=== PATIENT | female | born 2000 | race Caucasian/White ===

== ENCOUNTER → 2019-11-14 | Outpatient (CLI) | payer OTHER, SELFPAY ==
[2019-11-14 13:12] VITALS: BMI 20.1
[2019-11-16 08:40] LABS: Thyroid Peroxidase AB 12 IU/mL (0-34)
== END | disposition home or self-care (01) ==
PROVIDERS: PCP Pediatrics; Referring Provider Internal Medicine Endocrinology, Diabetes & Metabolism; Visit Provider Internal Medicine Endocrinology, Diabetes & Metabolism
DX: E04.9 Nontoxic goiter, unspecified (principal)
CPT/HCPCS: 86376

== ENCOUNTER → 2020-12-27 08:25 | Outpatient (CLI) | payer OTHER, SELFPAY ==
[2020-12-27 08:12] VITALS: BMI 19.8
[2020-12-27 13:00] LABS: Free T3 2.8 pg/mL (2.18-3.98); T4 Free Direct 1.02 ng/dL (0.76-1.46); Thyroid Stim Hormone (TSH) 2.96 uIU/mL (0.358-3.74)
== END ==
PROVIDERS: PCP Pediatrics; Visit Provider Internal Medicine Endocrinology, Diabetes & Metabolism
DX: E05.00 Thyrotoxicosis with diffuse goiter without thyrotoxic crisis or storm (principal)
CPT/HCPCS: 36415; 84439; 84443; 84481

== ENCOUNTER → 2022-02-14 | Outpatient (CLI) | payer OTHER, SELFPAY ==
[2022-02-14 15:11] LABS: Absolute Lymphocyte Count 2.14 X10^3/uL (0.83-4.51); Absolute Neutrophil Count 3.3 X10^3/uL (2.0-7.7); Basophil# 0.05 X10^3/uL; Basophil% 0.8 % (0-1); Eosinophil# 0.21 X10^3/uL; Eosinophils% 3.3 % (0-5); Hematocrit 40.3 % (37-47); Hemoglobin 12.6 g/dL (12.0-15.0); Lymphocyte # 2.14 X10^3/ul (0.83-4.51); Lymphocyte % 34.1 % (19-41); Mean Corp Hgb Conc 31.3 g/dL (32-36); Mean Corpuscular Hgb 26.6 pg (27.0-32.0); Mean Corpuscular Volume 85.2 fL (81-99); Mean Platelet Vol. 10.5 fl (6.2-12.0); Monocyte# 0.56 X10^3/uL; Monocyte% 8.9 % (0-10); NRBC Flagged by Analyzer 0 % (0-5); Neutrophil # 3.29 X10^3/uL (2.7-7.7); Neutrophil % 52.6 % (47-70); Platelet Count 323 K/mm3 (150-450); RBC Distribution Width CV 14.7 % (11.6-14.6); RBC Distribution Width SD 45.7 fl (35.1-43.9); Red Blood Count 4.73 M/mm3 (4.2-5.4); White Blood Count 6.3 K/mm3 (4.4-11.0)
[2022-02-14 18:33] LABS: ALB/GLOB Ratio 1.1 RATIO (0.9-2.4); AST(SGOT) 19 U/L (15-37); Alanine Aminotransfer ALT/SGPT 20 U/L (13-56); Albumin, Serum 4.1 g/dL (3.2-5.0); Alkaline Phosphatase 58 U/L (45-117); Anion Gap 7 (5-15); BUN 14 mg/dL (7-18); BUN/Creat Ratio 15.6 RATIO (10-20); Calcium,Total 9.3 mg/dL (8.5-10.1); Chloride 106 mmol/L (98-107); EST Glomerular Filtration Rate 83 mL/min (>60); Est Glom Filt Rate - Afr Amer 101 mL/min (>60); Free T3 2.8 pg/mL (2.18-3.98); Globulin 3.6 g/dL (2.2-4.2); Glucose 122 mg/dL (74-106); Potassium 4.1 mmol/L (3.5-5.1); Protein, Total 7.7 g/dL (6.4-8.2); Sodium Level 140 mmol/L (136-145); T4 Free Direct 0.95 ng/dL (0.76-1.46); Thyroid Stim Hormone (TSH) 1.44 uIU/mL (0.358-3.74)
== END | disposition home or self-care (01) ==
LOC: BIMLAB 14:08
PROVIDERS: Referring Provider Nurse Practitioner Family; Visit Provider Nurse Practitioner Family
DX: E05.00 Thyrotoxicosis with diffuse goiter without thyrotoxic crisis or storm (principal)
CPT/HCPCS: 36415; 80053; 84439; 84443; 84481; 85025

== ENCOUNTER → 2022-06-20 | Outpatient (CLI) | payer OTHER, SELFPAY ==
[2022-06-20 13:05] LABS: Free T3 2.5 pg/mL (2.18-3.98); T4 Free Direct 0.89 ng/dL (0.76-1.46); Thyroid Stim Hormone (TSH) 2.43 uIU/mL (0.358-3.74)
== END | disposition home or self-care (01) ==
LOC: BIMLAB 10:12
PROVIDERS: Visit Provider Internal Medicine Endocrinology, Diabetes & Metabolism
DX: E05.00 Thyrotoxicosis with diffuse goiter without thyrotoxic crisis or storm (principal)
CPT/HCPCS: 36415; 84439; 84443; 84481

== ENCOUNTER → 2022-12-12 | Outpatient (CLI) | payer OTHER, SELFPAY ==
[2022-12-12 13:21] LABS: Free T3 2.2 pg/mL (2.18-3.98); T4 Free Direct 0.76 ng/dL (0.76-1.46); Thyroid Stim Hormone (TSH) 4.28 uIU/mL (0.358-3.74)
== END | disposition home or self-care (01) ==
LOC: BIMLAB 09:20
PROVIDERS: Referring Provider Internal Medicine Endocrinology, Diabetes & Metabolism; Visit Provider Internal Medicine Endocrinology, Diabetes & Metabolism
DX: E05.00 Thyrotoxicosis with diffuse goiter without thyrotoxic crisis or storm (principal)
CPT/HCPCS: 36415; 84439; 84443; 84481

== ENCOUNTER → 2023-06-09 | Outpatient (CLI) | payer OTHER, SELFPAY ==
[2023-06-09 13:44] LABS: Free T3 1.7 pg/mL (2.18-3.98); T4 Free Direct 0.34 ng/dL (0.76-1.46)
== END | disposition home or self-care (01) ==
LOC: BIMLAB 09:19
PROVIDERS: Referring Provider Internal Medicine Endocrinology, Diabetes & Metabolism; Visit Provider Internal Medicine Endocrinology, Diabetes & Metabolism
DX: E05.00 Thyrotoxicosis with diffuse goiter without thyrotoxic crisis or storm (principal)
CPT/HCPCS: 36415; 84439; 84443; 84481

== ENCOUNTER → 2023-07-10 | Outpatient (CLI) | payer OTHER, SELFPAY ==
[2023-07-10 13:19] LABS: T4 Free Direct 0.43 ng/dL (0.76-1.46)
== END | disposition home or self-care (01) ==
LOC: BIMLAB 09:01
PROVIDERS: Referring Provider Internal Medicine Endocrinology, Diabetes & Metabolism; Visit Provider Internal Medicine Endocrinology, Diabetes & Metabolism
DX: E05.00 Thyrotoxicosis with diffuse goiter without thyrotoxic crisis or storm (principal)
CPT/HCPCS: 36415; 84439; 84443

== ENCOUNTER → 2023-08-28 | Outpatient (CLI) | payer OTHER, SELFPAY ==
--- OUTSIDE RECORDS SUMMARY | 2023-08-28 09:26 | XMS RPT_ITS | CCD ---
Author Name Unknown Address [address] [facility] [address] [place] [address] Organization [facility] Care Team Providers Care Dye Range Operator Name Role Phone Roslyn Morse Attending Unava ilStefany Adan Referring Unavailabl e Strong, Luly Mary Primary Care Unavailable Briskin, Roslyn Archer Attending Unava ilable Strong, Luly Usman Primary Care Unavailable Stantoniskin, Roslyn Archer Attending Unava ilable Strong, Luly Mary Primary Care Unavailable StephanieWyatt Attending Unavail able StephanieWyatt Referring Unavail able StrongLuly Primary Care Unavailable Stephanie, Wyatt Gallegos Attending Unavail able StephanieWyatt Referring Unavail able Strong, Luly Mary Primary Care Unavailable StephanieWyatt schilling Admitting Unavail able StephanieWyatt schilling Attending Unavail able Luly Lambert Referring Unavailable StrongLuly Equality Primary Care Unavailable Stephanie, Wyatt Gallegos Attending Unavail able StephanieWyatt Referring Unavail able Strong, Luly Usman Primary Care Unavailable Luly Lambert MD Primary Care Provider [phone] Luly Lambert MD Primary Care Provider [phone] Ena Balderas APRN.CNP Primary Care Provider Katiuska Tavares DO Unavailable [phone] Yusra Perdue Unavailable ENA BALDERAS Referring Unavailable ENA BALDERAS Primary Care Unavailable ENA BALDERAS Attending Unavailable ENA BALDERAS Primary Care Unavailable LULY LAMBERT Primary Care Unavailable ENA BALDERAS Attending Unavailable ENA BALDERAS Primary Care Unavailable ENA BALDERAS Referring Unavailable ENA BALDERAS Primary Care Unavailable ENA BALDERAS Primary Care Unavailable ENA BALDERAS Attending Unavailable ENA BALDERAS Primary Care Unavailable Allergies Allergy Classification Reported Allergen(s) Allergy Type Date of Onset Reaction(s) Facility (18 sources) coconut allergenic extract; Translations: [COCONUT] Drug Allergy 02-27-20 09 Rash [facility] (18 sources) peanut; Translations: [PEANUTS] Propensity to adverse reactions 04-18-20 05 [facility] (16 sources) CATS ,DOGS [Other] Propensity to adverse reactions 04-18-20 05 [facility] Work Phone: (16 sources) Environmental allergies [Other] Propensity to adverse reactions 04-13-20 06 [facility] (16 sources) Tree nuts [Other] Propensity to adverse reactions 07-30-20 10 Other: See Comments [facility] Work Phone: (15 sources) Ether; Translations: [ETHER] Drug Intolerance 09-12-19 23 Intolerance [facility] Work Phone: (1 source) OTHER; Translations: [OTHER] Propensity to adverse reactions (disorder) 07-30-20 10 [facility] Medications Current Medications Medication Drug Class(es) Dates Sig (Normalized) Sig (Original) Albuterol 90 mcg/inh inhalation aerosol (3 sources) beta2-Adrenergic Agonist Albuterol 90 mcg/inh inhalation aerosol ALPRAZolam 0.25 mg oral tablet (1 source) Benzodiazepine Start: 07-17-2023 End: 08-16-2023 take 1 tablet by mouth twice daily as needed ALPRAZolam (XANAX) 0.25 mg tablet Indications: Situational anxiety , Chest tightness , Stress Take 1 tablet by mouth two times a day as needed for up to 30 days. 30 tablet 1 07/17/2023 08/16/2023 Active Completed/Discontinued Medications Medication Drug Class(es) Dates Sig (Normalized) Sig (Original) acetaminophen 325 mg oral tablet (17 sources) take 2 tablets by mouth every six hours as needed acetaminophen (TYLENOL) 325 mg tablet Take 650 mg by mouth every 6 hours as needed. 0 Active Problems Active Problems Problem Classification Problem Date Documented Da te Episodic/Chronic Abdominal pain (1 source) Periumbilical pain; Translations: [Periumbilical pain] Episodic Adjustment disorders (1 source) Stress; Translations: [Reaction to severe stress, unspecified] 07-17-2023 Chronic Allergic reactions (17 sources) Atopic dermatitis; Translations: [Other atopic dermatitis] Onset: 04-18-2005 04-18-2005 Chronic Anxiety disorders (4 sources) Generalized anxiety disorder; Translations: [Generalized anxiety disorder] Onset: 09-12-2022 Chronic Asthma (20 sources) Intermittent asthma; Translations: [Mild intermittent asthma, uncomplicated] Onset: 05-19-2005 01-16-2012 Chronic External cause codes: Natural/environment (1 source) Overexertion from prolonged static or awkward postures, initial encounter; Translations: [Overexertion from prolonged static or awkward postures, init] Onset: 03-31-2018 External cause codes: Place of occurrence (1 source) College as the place of occurrence of the external cause; Translations: [College as the place of occurrence of the external cause] Onset: 03-31-2018 Immunizations and screening for infectious disease (7 sources) Patient encounter status; Translations: [Encounter for screening for infections with a predominantly sexual mode of transmission] Onset: 05-08-2023 Episodic Nonspecific chest pain (1 source) Tight chest; Translations: [Other chest pain] 07-17-2023 Episodic Other gastrointestinal disorders (2 sources) Chronic constipation; Translations: [Other constipation] Episodic Other upper respiratory disease (17 sources) Allergic rhinitis; Translations: [Allergic rhinitis, unspecified] Onset: 04-18-2005 04-18-2005 Chronic Other upper respiratory infections (1 source) Sore throat symptom; Translations: [Acute pharyngitis, unspecified] Episodic Otitis media and related conditions (2 sources) Acute right otitis media; Translations: [Otitis media, unspecified, right ear] Episodic Thyroid disorders (19 sources) Hyperthyroidism; Translations: [Thyrotoxicosis, unspecified without thyrotoxic crisis or storm] Onset: 09-12-2022 Chronic Unclassified (2 sources) Oth tear of medial meniscus, current injury, unsp knee, init; Translations: [Oth tear of medial meniscus, current injury, unsp knee, init] Onset: 04-12-2018 Viral infection (7 sources) Viral disease; Translations: [Viral infection, unspecified] Onset: 04-07-2023 Episodic Past or Other Problems Problem Classification Problem Date Documented Da te Episodic/Chronic Allergic reactions (17 sources) Allergy to tree nut; Translations: [Allergy to other foods] Onset: 04-18-2005 10-10-2015 Episodic Joint disorders and dislocations; trauma-related (2 sources) Complex tear of medial meniscus, current injury, right knee, initial encounter; Translations: [Complex tear of medial mensc, current injury, r knee, init] Onset: 03-31-2018 Episodic Other aftercare (1 source) intermediate card tender (current) use of non-steroidal anti-inflammatorie s (NSAID); Translations: [intermediate card tender (current) use of non-steroidal non-inflam (NSAID)] Onset: 03-31-2018 Episodic Other gastrointestinal disorders (1 source) Other constipation; Translations: [Chronic constipation] Onset: 09-12-2022 Episodic Other lower respiratory disease (17 sources) Disorder of lung; Translations: [Other disorders of lung] Onset: 04-18-2005 04-18-2005 Episodic Other non-traumatic joint disorders (3 sources) Pain in right knee; Translations: [Pain in right knee] Onset: 03-19-2018 Episodic Other non-traumatic joint disorders (3 sources) Pain in unspecified knee; Translations: [Pain in unspecified knee] Onset: 03-19-2018 Episodic Other non-traumatic joint disorders (3 sources) Effusion, right knee; Translations: [Effusion, right knee] Onset: 03-19-2018 Episodic Other screening for suspected conditions (not mental disorders or infectious disease) (2 sources) Encounter for screening for nutritional disorder; Translations: [Encounter for screening for lipoid disorders] Onset: 09-12-2022 Episodic Results Test Name Value Interpretation Reference Range Facil ity Vital Signs Date Time Vital Sign Value Performing Clinician Facility 07-17-2023 12:21-0500 Body weight 60.87 kg Ena Balderas APRN.CNP Work Phone: [facility] 07-17-2023 12:21-0500 Diastolic blood pressure 64 mm[Hg] Ena Balderas APRN.CNP Work Phone: [facility] 07-17-2023 12:21-0500 Heart rate 68 /min Ena Andrey CLOTH FINISHING RANGE TENDER.SPECIMEN PREPARATION ASSISTANT Work Phone: [facility] 07-17-2023 12:21-0500 Respiratory rate 16 /min Ena Andrey CLOTH FINISHING RANGE TENDER.SPECIMEN PREPARATION ASSISTANT Work Phone: [facility] 07-17-2023 12:21-0500 SaO2% (BldA) [Mass fraction] 100 % Ena Andrey CLOTH FINISHING RANGE TENDER.SPECIMEN PREPARATION ASSISTANT Work Phone: [facility] 07-17-2023 12:21-0500 Systolic blood pressure 100 mm[Hg] Ena Andrey CLOTH FINISHING RANGE TENDER.SPECIMEN PREPARATION ASSISTANT Work Phone: [facility] 04-07-2023 11:40-0400 Body temperature 97.52 [degF] Katiuska Anusha DO [facility] 04-07-2023 11:40-0400 Body weight 59 kg Katiuska Anusha DO [facility] 04-07-2023 11:40-0400 Diastolic blood pressure 79 mm[Hg] Katiuska Anusha DO [facility] 04-07-2023 11:40-0400 Heart rate 75 /min Katiuska Anusha DO [facility] 04-07-2023 11:40-0400 Respiratory rate 16 /min Katiuska Anusha DO [facility] 04-07-2023 11:40-0400 SaO2% (BldA) [Mass fraction] 99 % Katiuska Anusha DO [facility] 04-07-2023 11:40-0400 Systolic blood pressure 114 mm[Hg] Katiuska Tavares DO [facility] 01-26-2023 16:36-0400 Body temperature 97.7 [degF] Krislyn Aberegg PA Work Phone: [facility] 01-26-2023 16:36-0400 Body weight 60.33 kg Krislyn Aberegg PA Work Phone: [facility] 01-26-2023 16:36-0400 Diastolic blood pressure 62 mm[Hg] Krislyn Aberegg PA Work Phone: [facility] 01-26-2023 16:36-0400 Heart rate 58 /min Krislyn Aberegg PA Work Phone: [facility] 01-26-2023 16:36-0400 Respiratory rate 16 /min Krislyn Aberegg PA Work Phone: [facility] 01-26-2023 16:36-0400 SaO2% (BldA) [Mass fraction] 96 % Krislyn Aberegg PA Work Phone: [facility] 01-26-2023 16:36-0400 Systolic blood pressure 100 mm[Hg] Krislyn Aberegg PA Work Phone: [facility] 10-23-2022 09:21-0400 Body weight 59.42 kg Ena Andrey CLOTH FINISHING RANGE TENDER.SPECIMEN PREPARATION ASSISTANT Work Phone: [facility] 10-23-2022 09:21-0400 Diastolic blood pressure 70 mm[Hg] Ena Andrey CLOTH FINISHING RANGE TENDER.SPECIMEN PREPARATION ASSISTANT Work Phone: [facility] 10-23-2022 09:21-0400 Heart rate 62 /min Ena Andrey CLOTH FINISHING RANGE TENDER.SPECIMEN PREPARATION ASSISTANT Work Phone: [facility] 10-23-2022 09:21-0400 Respiratory rate 16 /min Ena Andrey CLOTH FINISHING RANGE TENDER.SPECIMEN PREPARATION ASSISTANT Work Phone: [facility] 10-23-2022 09:21-0400 SaO2% (BldA) [Mass fraction] 100 % Ena Andrey CLOTH FINISHING RANGE TENDER.SPECIMEN PREPARATION ASSISTANT Work Phone: [facility] 10-23-2022 09:21-0400 Systolic blood pressure 106 mm[Hg] Ena Andrey CLOTH FINISHING RANGE TENDER.SPECIMEN PREPARATION ASSISTANT Work Phone: [facility] 09-12-2022 08:09-0500 Body weight 60.15 kg Ena Andrey CLOTH FINISHING RANGE TENDER.SPECIMEN PREPARATION ASSISTANT Work Phone: [facility] 09-12-2022 08:09-0500 Diastolic blood pressure 80 mm[Hg] Ena Andrey CLOTH FINISHING RANGE TENDER.SPECIMEN PREPARATION ASSISTANT Work Phone: [facility] 09-12-2022 08:09-0500 Heart rate 85 /min Ena Andrey CLOTH FINISHING RANGE TENDER.SPECIMEN PREPARATION ASSISTANT Work Phone: [facility] 09-12-2022 08:09-0500 Respiratory rate 16 /min Ena Andrey CLOTH FINISHING RANGE TENDER.SPECIMEN PREPARATION ASSISTANT Work Phone: [facility] 09-12-2022 08:09-0500 SaO2% (BldA) [Mass fraction] 97 % Ena Andrey CLOTH FINISHING RANGE TENDER.SPECIMEN PREPARATION ASSISTANT Work Phone: [facility] 09-12-2022 08:09-0500 Systolic blood pressure 118 mm[Hg] Ena Andrey CLOTH FINISHING RANGE TENDER.SPECIMEN PREPARATION ASSISTANT Work Phone: [facility] 09-09-2022 07:30-0500 Body temperature 98.8 [degF] Ac Pendlebury CLOTH FINISHING RANGE TENDER.SPECIMEN PREPARATION ASSISTANT Work Phone: [facility] 09-09-2022 07:30-0500 Body weight 60.78 kg Ac Pendlebury CLOTH FINISHING RANGE TENDER.SPECIMEN PREPARATION ASSISTANT Work Phone: [facility] 09-09-2022 07:30-0500 Diastolic blood pressure 62 mm[Hg] Ac Pendlebury CLOTH FINISHING RANGE TENDER.SPECIMEN PREPARATION ASSISTANT Work Phone: [facility] 09-09-2022 07:30-0500 Heart rate 78 /min Ac Du CLOTH FINISHING RANGE TENDER.SPECIMEN PREPARATION ASSISTANT Work Phone: [facility] 09-09-2022 07:30-0500 Respiratory rate 16 /min Ac Du CLOTH FINISHING RANGE TENDER.SPECIMEN PREPARATION ASSISTANT Work Phone: [facility] 09-09-2022 07:30-0500 SaO2% (BldA) [Mass fraction] 99 % Ac Du CLOTH FINISHING RANGE TENDER.SPECIMEN PREPARATION ASSISTANT Work Phone: [facility] 09-09-2022 07:30-0500 Systolic blood pressure 120 mm[Hg] Ac Du CLOTH FINISHING RANGE TENDER.SPECIMEN PREPARATION ASSISTANT Work Phone: [facility] 05-20-2022 09:31-0400 Body height 175.3 cm Bernarda Vargas CLOTH FINISHING RANGE TENDER.CNM Work Phone: [facility] 05-20-2022 09:31-0400 Body weight 61.87 kg Bernarda Vargas CLOTH FINISHING RANGE TENDER.CNM Work Phone: [facility] 05-20-2022 09:31-0400 Diastolic blood pressure 64 mm[Hg] Bernarda Vargas CLOTH FINISHING RANGE TENDER.CNM Work Phone: [facility] 05-20-2022 09:31-0400 Systolic blood pressure 100 mm[Hg] Bernarda Vargas CLOTH FINISHING RANGE TENDER.CNM Work Phone: [facility] 05-05-2022 17:58-0400 Body temperature 97.81 [degF] Ac Du CLOTH FINISHING RANGE TENDER.SPECIMEN PREPARATION ASSISTANT Work Phone: [facility] 05-05-2022 17:58-0400 Body weight 62.05 kg Ac Du CLOTH FINISHING RANGE TENDER.SPECIMEN PREPARATION ASSISTANT Work Phone: [facility] 05-05-2022 17:58-0400 Diastolic blood pressure 60 mm[Hg] Ac Du CLOTH FINISHING RANGE TENDER.SPECIMEN PREPARATION ASSISTANT Work Phone: [facility] 05-05-2022 17:58-0400 Heart rate 61 /min Ac Du CLOTH FINISHING RANGE TENDER.SPECIMEN PREPARATION ASSISTANT Work Phone: [facility] 05-05-2022 17:58-0400 Respiratory rate 21 /min Ac Du CLOTH FINISHING RANGE TENDER.SPECIMEN PREPARATION ASSISTANT Work Phone: [facility] 05-05-2022 17:58-0400 SaO2% (BldA) [Mass fraction] 98 % Ac Du CLOTH FINISHING RANGE TENDER.SPECIMEN PREPARATION ASSISTANT Work Phone: [facility] 05-05-2022 17:58-0400 Systolic blood pressure 104 mm[Hg] Ac Du CLOTH FINISHING RANGE TENDER.SPECIMEN PREPARATION ASSISTANT Work Phone: [facility] Encounters Encounter Date Encounter Type Care Provider Facility Start: 07-17-2023 End: 07-17-2023 ambulatory [facility] Facility:[facility] Start: 07-17-2023 End: 07-17-2023 Patient encounter procedure Ena Sultanautzman CLOTH FINISHING RANGE TENDER.SPECIMEN PREPARATION ASSISTANT Work Phone: [facility] [place] Procedures Date Procedure Procedure Detail Performing Clinician Start: 07-17-2023 Ecg routine ecg w/le ast 12 lds i&r only [facility] Provider Start: 01-26-2023 STREP A MOLECULAR (POC) Alta SANTORO Work Phone: Start: 03-31-2018 Anes open/surg arthroscopic proc knee joint nos Roslyn Morse Start: 03-31-2018 Arthrs kne surg w/meniscectomy med/lat w/shvg Roslyn Morse Plan of Treatment Date Care Activity Detail Author Start: 07-25-2024 PAP TESTING PAP TESTING [facility] Start: 07-25-2024 Screening for malign ant neoplasm of cervix Pap Testing [facility] Start: 07-17-2024 Annual PCP Team Prison Guard Supervisor kristina Disease Visit Annual PCP Team Chronic Disease Visit [facility] Start: 10-24-2023 ANNUAL PCP TEAM MALT LOADER KRISTINA DISEASE VISIT ANNUAL PCP TEAM CHRONIC DISEASE VISIT [facility] Start: 09-12-2023 ANNUAL PCP TEAM MALT LOADER KRISTINA DISEASE VISIT ANNUAL PCP TEAM CHRONIC DISEASE VISIT [facility] Start: 09-12-2023 COVID-19 VACCINE (#1) COVID-19 VACCI NE (#1) [facility] Immunizations Immunization Date Immunization Notes Care Provider Samanta quiñones 02-22-2018 meningococcal B vacc ine, recombinant, OMV, adjuvanted [facility] CLOTH FINISHING RANGE TENDER.[facility] Work Phone: [facility] Work Phone: 01-19-2018 meningococcal B vacc ine, recombinant, OMV, adjuvanted [facility] CLOTH FINISHING RANGE TENDER.SPECIMEN PREPARATION ASSISTANT Work Phone: [facility] Work Phone: 01-16-2016 meningococcal polysaccharide (groups A, C, Y and W-135) diphtheria toxoid conjugate vaccine (MCV4P) [facility] CLOTH FINISHING RANGE TENDER.SPECIMEN PREPARATION ASSISTANT Work Phone: [facility] 01-16-2012 Meningococcal, MCV4, unspecified conjugate formulation(groups A, C, Y and W-135) [facility] CLOTH FINISHING RANGE TENDER.[facility] Work Phone: [facility] 01-16-2012 tetanus toxoid, redu gilma diphtheria toxoid, and acellular pertussis vaccine, adsorbed [facility] CLOTH FINISHING RANGE TENDER.SPECIMEN PREPARATION ASSISTANT Work Phone: [facility] 01-16-2012 varicella virus vaccine Yannick [facility] CLOTH FINISHING RANGE TENDER.[facility] Work Phone: [facility] 10-28-2004 diphtheria, tetanus toxoids and acellular pertussis vaccine [facility] CLOTH FINISHING RANGE TENDER.[facility] Work Phone: [facility] Work Phone: 10-28-2004 measles, mumps and rubella virus vaccine [facility] CLOTH FINISHING RANGE TENDER.SPECIMEN PREPARATION ASSISTANT Work Phone: [facility] Work Phone: 10-28-2004 poliovirus vaccine, inactivated [facility] CLOTH FINISHING RANGE TENDER.SPECIMEN PREPARATION ASSISTANT Work Phone: [facility] Work Phone: 07-24-2003 influenza virus vacc ine, unspecified formulation Ac [facility] CLOTH FINISHING RANGE TENDER.SPECIMEN PREPARATION ASSISTANT Work Phone: [facility] Work Phone: 03-17-2001 haemophilus influenz ae type b vaccine, HbOC conjugate [facility] CLOTH FINISHING RANGE TENDER.SPECIMEN PREPARATION ASSISTANT Work Phone: [facility] Work Phone: 03-17-2001 poliovirus vaccine, inactivated [facility] CLOTH FINISHING RANGE TENDER.[facility] Work Phone: [facility] Work Phone: 12-14-2000 diphtheria, tetanus toxoids and acellular pertussis vaccine [facility] CLOTH FINISHING RANGE TENDER.[facility] Work Phone: [facility] Work Phone: 12-14-2000 pneumococcal conjuga te vaccine, 7 valent [facility] CLOTH FINISHING RANGE TENDER.[facility] Work Phone: [facility] Work Phone: 12-14-2000 varicella virus vaccine [facility] CLOTH FINISHING RANGE TENDER.[facility] Work Phone: [facility] Work Phone: 09-18-2000 hepatitis B vaccine, pediatric or pediatric/adolescent dosage [facility] CLOTH FINISHING RANGE TENDER.[facility] Work Phone: [facility] Work Phone: 09-18-2000 measles, mumps and rubella virus vaccine [facility] CLOTH FINISHING RANGE TENDER.[facility] Work Phone: [facility] Work Phone: 09-18-2000 pneumococcal conjuga te vaccine, 7 valent [facility] CLOTH FINISHING RANGE TENDER.[facility] Work Phone: [facility] Work Phone: 06-16-2000 hepatitis B vaccine, pediatric or pediatric/adolescent dosage [facility] CLOTH FINISHING RANGE TENDER.SPECIMEN PREPARATION ASSISTANT Work Phone: [facility] Work Phone: 06-16-2000 pneumococcal conjuga te vaccine, 7 valent [facility] CLOTH FINISHING RANGE TENDER.[facility] Work Phone: [facility] Work Phone: 03-18-2000 diphtheria, tetanus toxoids and acellular pertussis vaccine [facility] CLOTH FINISHING RANGE TENDER.[facility] Work Phone: [facility] Work Phone: 03-18-2000 haemophilus influenz ae type b vaccine, HbOC conjugate [facility] CLOTH FINISHING RANGE TENDER.[facility] Work Phone: [facility] Work Phone: 03-18-2000 hepatitis B vaccine, pediatric or pediatric/adolescent dosage [facility] CLOTH FINISHING RANGE TENDER.[facility] Work Phone: [facility] Work Phone: 03-18-2000 pneumococcal conjuga te vaccine, 7 valent [facility] CLOTH FINISHING RANGE TENDER.[facility] Work Phone: [facility] Work Phone: 01-15-2000 diphtheria, tetanus toxoids and acellular pertussis vaccine [facility] CLOTH FINISHING RANGE TENDER.[facility] Work Phone: [facility] Work Phone: 01-15-2000 haemophilus influenz ae type b vaccine, HbOC conjugate [facility] CLOTH FINISHING RANGE TENDER.[facility] Work Phone: [facility] Work Phone: 01-15-2000 poliovirus vaccine, inactivated [facility] CLOTH FINISHING RANGE TENDER.[facility] Work Phone: [facility] Work Phone: 1999 diphtheria, tetanus toxoids and acellular pertussis vaccine [facility] CLOTH FINISHING RANGE TENDER.[facility] Work Phone: [facility] Work Phone: 1999 haemophilus influenz ae type b vaccine, HbOC conjugate [facility] CLOTH FINISHING RANGE TENDER.[facility] Work Phone: [facility] Work Phone: 1999 poliovirus vaccine, inactivated [facility] CLOTH FINISHING RANGE TENDER.[facility] Work Phone: [facility] Work Phone: Payers Date Payer Category Payer Private Health Insurance [facility] UMR CHOICE PLUS [id number] 2018-Present [phone] [address] [address] [place] [address] [facility] [id number] 2018 Unknown [id number] 1999 Unknown [id number] 1999 Unknown [id number] 1999 Unknown [id number] 1999 Unknown [id number] 1999 Unknown [id number] 1999 Unknown [id number] 1999 Unknown [id number] Private Health Insurance [id number] Unknown [id number] Social History Date Type Detail Facility Start: 05-05-2022 Tobacco smoking status NHIS Never sm oked tobacco [facility] Start: 05-05-2022 Tobacco use and exposure Smoke less tobacco non-user [facility] Start: 05-05-2022 End: 07-17-2023 Alcohol intake Current drinker of alcohol (finding) [facility] Start: 07-25-2021 History SDOH Alcohol Comment Socially [facility] Start: 1999 Sex Assigned At Not on file [facility] Start: 09-12-2022 History SDOH Alcohol Frequency 2 [facility] Start: 09-12-2022 History SDOH Social Connections Phone 5 [facility] Start: 09-12-2022 History SDOH Social Connections [employer] 3 [facility] Start: 09-12-2022 History SDOH Social Connections Meetings 98 [facility] Start: 09-12-2022 History SDOH Social Connections Living 7 [facility] Start: 09-12-2022 History SDOH Physica l Activity MPS 9 [facility] Start: 09-12-2022 Alcohol Comment Socially, rarely [facility] Start: 09-11-2022 End: 03-20-2023 History of Social function [facility] Start: 09-11-2022 End: 03-20-2023 Social connection and isolation panel [facility] Do you belong to any clubs or organizations such as islam groups, unions, fraternal or athletic groups, or school groups? No [facility] How often do you att end meetings of the clubs or organizations you belong to? Patient refused [facility] Are you now , , , , never or living with a partner? Never [facility] How often to you hav e a drink containing alcohol? Monthly or less [facility] How many standard dr inks containing alcohol do you have on a typical day? 3 or 4 [facility] How often do you hav e 6 or more drinks on 1 occasion? Less than monthly [facility] Do you feel stress - tense, restless, nervous, or anxious, or unable to sleep at night because your mind is troubled all the time - these days [OSQ] To some extent [facility] (I/We) worried wheth er (my/our) food would run out before (I/we) got money to buy more. DK or Refused [facility] Clinical Notes 05-05-2022 to 07-17-2023 Ena Balderas APRN.CNP - 07/17/2023 12:29 PM ESTTelephone Encounter - Rosemary Reyna LPN - 06/22/2023 9:15 AM ESTTelephone Encounter - Evangelina Arias LPN - 05/04/2023 3:51 PM EDT Note Date & Type Note Facility 07-17-2023 Note HNO ID: [id number] Author: nEa Balderas APRN.CNP Service: ? Author Type: Nurse Practitioner Type: Progress Notes Filed: 07/17/2023 2:12 PM Note Text: Chief Complaint Patient presents with: Chest Pain: Intermittently x couple months, unsure if anxiety related. Pt dx with hypothyroidism. HPI Beronica Conner is a 22 year old female who presents here today for Above Complaints. Today: Has been under stress lately-started a new job. 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 Some discomfort to her left chest as well as midsternal. More of a tightening. No numbness or tingling, SOB. Midsternal pain-can last 5 minutes or sometimes longer. Can be laying down in bed. Typically while she is sitting down. Significant family hx of heart disease. Recently got the COVID shot for dental school. No headaches. Happens at least once per day. No palpitations, no problems getting a deep breath. Around Thanksgiving saw endocrinology who dx her with hypothyroidism. Was told she was in thyroid failure. Started on levothyroxine and to follow up in the end of August. Significant family hx of thyroid disease. Sees Dr. Garcia. Past medical history, appointments, medications, allergies reviewed. Previous Medical History PAST MEDICAL HISTORY Diagnosis Date Allergic rhinitis, cause unspecified Hyperthyroidism PMH - PAST MEDICAL HISTORY OF 01/16/2012 normal color vision PMH - PAST MEDICAL HISTORY OF eczema Tear, knee, medial meniscus 04/02/2018 Previous Surgical History PAST SURGICAL HISTORY Procedure Laterality Date ARTHROTOMY W/MENISCUS REPAIR KNEE Right 04/02/2018 ORAL SURGERY PROCEDURE [place] teeth TYMPANOSTOMY LOCAL/TOPICAL ANESTHESIA Family History FAMILY HISTORY Problem Relation Age of Onset Thyroid Mother hypothyroid Heart Mother bradycardia Hyperlipidemia Father Hypertension Father No Known Problems Sister younger Hypertension Maternal Grandmother Heart Maternal Grandmother aortic valve disorder, open heart surgery other (high cholesterol) Maternal Grandmother Emphysema Maternal Grandfather Cancer Maternal Grandfather Lung, was smoker, in 70's Diabetes Paternal Grandmother Heart Paternal Grandfather 60's Thyroid Other great aunt thyroid cancer Patient Allergies ALLERGIES Allergen Reactions Cats ,Dogs [Other] Coconut Rash Environmental Aller* trees, grasses, weeds, ragweed Ether For Anesthesi* Intolerance Nausea-can have anesthesia-just premedicate for nausea following Peanuts and tree nuts Tree Nuts [Other] Other: See Comments positive test for tree nuts Current Medications Current Outpatient Medications on File Prior to Visit Medication Sig levothyroxine 75 mcg cap Take 75 mcg by mouth daily before breakfast. citalopram hydrobromide (CELEXA) 10 mg tablet Take 1 tablet by mouth once daily. multivit with calcium,iron,min (WOMEN'S DAILY MULTIVITAMIN ORAL) Take by mouth. EPINEPHrine (AUVI-Q) 0.3 mg/0.3 mL auto-injector Inject to the anterior thigh as directed by signs and symptoms in the allergy action plan. If used the patient must seek emergency medical care. May administer a second dose after 5 minutes for failure to respond or worsening symptoms while awaiting EMS. Dispense 2 twin packs with trainers acetaminophen (TYLENOL) 325 mg tablet Take 650 mg by mouth every 6 hours as needed. diphenhydrAMINE (BENADRYL) 25 mg capsule Take 1-2 capsules by mouth every 6 hours as needed. methIMAzole (TAPAZOLE) 5 mg tablet Take by mouth. No current facility-administered medications on file prior to visit. Social History Social History Tobacco Use Smoking status: Never Smokeless tobacco: Never Vaping Use Vaping Use: Never used Substance Use Topics Alcohol use: Yes Comment: Socially, rarely Drug use: No Review of Symptoms REVIEW OF SYSTEMS See HPI, otherwise negative EXAM: BP 100/64 (BP Site: Left Arm, BP Position: Sitting, BP Cuff Size: Regular Adult) Pulse 68 Resp 16 Wt 60.9 kg (134 lb 3.2 oz) LMP 05/19/2022 (Exact Date) SpO2 100% BMI 19.82 kg/m? General Appearance: Well appearing, alert, in no acute distress, well-hydrated, well nourished. and Thin. Lungs: Lungs clear to auscultation. No wheezing, rhonchi, rales.. Heart: RRR without murmur, gallop, or rubs. No ectopy. Musculoskeletal: No joint swelling, deformity, or tenderness. Psychiatric: pleasant, cooperative, no SI/HI. Health Maintenance List Spirometry Never done Depression Assessment Never done Influenza Vaccine(1) due on 04/03/2023 GC (Gonorrhea) Screening (18-24) due on 05/20/2023 Chlamydia Screening (18-24) due on 05/20/2023 DTaP,Tdap,Td Vaccine(7 - Td or Tdap) due on 09/12/2023 HPV Vaccine(1 - 2-dose series) due on 09/12/2023 Pneumococcal Vaccine(1 of 2 - PCV) due on 09/12/2023 Annual PCP Team Chronic Disease Visit due on 10/24/2023 Pap Te (more content not included)... [facility] 07-17-2023 History of Presen t illness Narrative Chief Complaint Patient presents with: Chest Pain: Intermittently x couple months, unsure if anxiety related. Pt dx with hypothyroidism. HPI Beronica Conner is a 22 year old female who presents here today for Above Complaints. Today: Has been under stress lately-started a new job. 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 Some discomfort to her left chest as well as midsternal. More of a tightening. No numbness or tingling, SOB. Midsternal pain-can last 5 minutes or sometimes longer. Can be laying down in bed. Typically while she is sitting down. Significant family hx of heart disease. Recently got the COVID shot for dental school. No headaches. Happens at least once per day. No palpitations, no problems getting a deep breath. Around Thanksgiving saw endocrinology who dx her with hypothyroidism. Was told she was in thyroid failure. Started on levothyroxine and to follow up in the end of August. Significant family hx of thyroid disease. Sees Dr. Garcia. Past medical history, appointments, medications, allergies reviewed. Previous Medical History PAST MEDICAL HISTORY Diagnosis Date Allergic rhinitis, cause unspecified Hyperthyroidism PMH - PAST MEDICAL HISTORY OF 01/16/2012 normal color vision PMH - PAST MEDICAL HISTORY OF eczema Tear, knee, medial meniscus 04/02/2018 Previous Surgical History PAST SURGICAL HISTORY Procedure Laterality Date ARTHROTOMY W/MENISCUS REPAIR KNEE Right 04/02/2018 ORAL SURGERY PROCEDURE [place] teeth TYMPANOSTOMY LOCAL/TOPICAL ANESTHESIA Family History FAMILY HISTORY Problem Relation Age of Onset Thyroid Mother hypothyroid Heart Mother bradycardia Hyperlipidemia Father Hypertension Father No Known Problems Sister younger Hypertension Maternal Grandmother Heart Maternal Grandmother aortic valve disorder, open heart surgery other (high cholesterol) Maternal Grandmother Emphysema Maternal Grandfather Cancer Maternal Grandfather Lung, was smoker, in 70's Diabetes Paternal Grandmother Heart Paternal Grandfather 60's Thyroid Other great aunt thyroid cancer Patient Allergies ALLERGIES Allergen Reactions Cats ,Dogs [Other] Coconut Rash Environmental Aller* trees, grasses, weeds, ragweed Ether For Anesthesi* Intolerance Nausea-can have anesthesia-just premedicate for nausea following Peanuts and tree nuts Tree Nuts [Other] Other: See Comments positive test for tree nuts Current Medications Current Outpatient Medications on File Prior to Visit Medication Sig levothyroxine 75 mcg cap Take 75 mcg by mouth daily before breakfast. citalopram hydrobromide (CELEXA) 10 mg tablet Take 1 tablet by mouth once daily. multivit with calcium,iron,min (WOMEN'S DAILY MULTIVITAMIN ORAL) Take by mouth. EPINEPHrine (AUVI-Q) 0.3 mg/0.3 mL auto-injector Inject to the anterior thigh as directed by signs and symptoms in the allergy action plan. If used the patient must seek emergency medical care. May administer a second dose after 5 minutes for failure to respond or worsening symptoms while awaiting EMS. Dispense 2 twin packs with trainers acetaminophen (TYLENOL) 325 mg tablet Take 650 mg by mouth every 6 hours as needed. diphenhydrAMINE (BENADRYL) 25 mg capsule Take 1-2 capsules by mouth every 6 hours as needed. methIMAzole (TAPAZOLE) 5 mg tablet Take by mouth. No current facility-administered medications on file prior to visit. Social History Social History Tobacco Use Smoking status: Never Smokeless tobacco: Never Vaping Use Vaping Use: Never used Substance Use Topics Alcohol use: Yes Comment: Socially, rarely Drug use: No Review of Symptoms REVIEW OF SYSTEMS See HPI, otherwise negative EXAM: BP 100/64 (BP Site: Left Arm, BP Position: Sitting, BP Cuff Size: Regular Adult) Pulse 68 Resp 16 Wt 60.9 kg (134 lb 3.2 oz) LMP 05/19/2022 (Exact Date) SpO2 100% BMI 19.82 kg/m General Appearance: Well appearing, alert, in no acute distress, well-hydrated, well nourished. and Thin. Lungs: Lungs clear to auscultation. No wheezing, rhonchi, rales.. Heart: RRR without murmur, gallop, or rubs. No ectopy. Musculoskeletal: No joint swelling, deformity, or tenderness. Psychiatric: pleasant, cooperative, no SI/HI. Health Maintenance List Spirometry Never done Depression Assessment Never done Influenza Vaccine(1) due on 04/03/2023 GC (Gonorrhea) Screening (18-24) due on 05/20/2023 Chlamydia Screening (18-24) due on 05/20/2023 DTaP,Tdap,Td Vaccine(7 - Td or Tdap) due on 09/12/2023 HPV Vaccine(1 - 2-dose series) due on 09/12/2023 Pneumococcal Vaccine(1 of 2 - PCV) due on 09/12/2023 Annual PCP Team Chronic Disease Visit due on 10/24/2023 Pap Testing due on 07/25/2024 Hepatitis B Vaccine Completed Meningococcal B Vaccine: Consider Based On Risk Completed Hepatitis C Screening Completed HIV Screening Completed Covid-19 Vaccine Completed Data reviewed Previous records, office notes, [place] report PDMP website checked and validated. All prescriptions have been APPROPRIATELY filled. No suspicious activity was identified. 07/17/2023 by Ena Balderas CNP. ASSESSMENT/PLAN: 1. Situational anxiety - ICD9: 300.09, ICD10: F41.8 (primary diagnosis) Suspect situational anxiety, less suspicion for cardiac etiology. If sx persist or worsen in intensity or frequency, may consider echo. Prn alprazolam given. - ECG COMPLETE - ALPRAZOLAM 0.25 MG TABLET 2. Chest tightness - ICD9: 786.59, ICD10: R07.89 Suspect situational anxiety, less suspicion for cardiac etiology. If sx persist or worsen in intensity or frequency, may consider echo. Prn alprazolam given. - ECG COMPLETE - ALPRAZOLAM 0.25 MG TABLET 3. Stress - ICD9: V62.89, ICD10: F43.9 Suspect situational anxiety, less suspicion for cardiac etiology. If sx persist or worsen in intensity or frequency, may consider echo. Prn alprazolam given. - ECG COMPLETE - ALPRAZOLAM 0.25 MG TABLET Ena Balderas APRN.MARINA documented in this encounter [facility] 06-22-2023 Miscellaneous Notes Clau--10/23/22 Nov--nothing scheduled Last refill--04/16/23 30 with 1 refill Last labs--09/12/22 documented in this encounter [facility] 05-04-2023 Miscellaneous Notes Left message for pt to return call: Need to clarify if she is actually needing the skin TB testing or the blood test. She is currently scheduled for a nurse visit 05/05/23 to complete the skin test, but has also made an appt with provider for 05/08/23 for orders to complete the blood test. Evnagelina Arias LPN documented in this encounter [facility] 04-24-2023 Miscellaneous Notes Order placed. Ena Balderas APRN.SPECIMEN PREPARATION ASSISTANT Patient scheduled for nurse visit 05/04/23 to receive PPD testing. Please place order at this time. Evangelina Arias LPN documented in this encounter [facility] 04-16-2023 Miscellaneous Notes Clau-10/23/22 Nov--nothing scheduled Last refill-- 30 with 1 refill Last labs--09/12/22 documented in this encounter [facility] 03-19-2023 Note HNO ID: [id number] Author: Kulwinder Adan MD Service: ? Author Type: Physician Type: Progress Notes Filed: 03/19/2023 5:29 PM Note Text: Note: The following is an abstracted note of the either a previous or a new History of Present Illness. This is in prep for an up-coming appointment or a summary update of a disease state. This is not a opwl-hq-crhp encounter. Previous history as follows: 09/27/2019: Ultrasound thyroid (at [facility]): Right Thyroid Lobe: The right thyroid measures 6.0 x 1.3 x 1.5 cm. The right lobe of the thyroid is heterogeneous in echotexture without discrete nodules. Left Thyroid Lobe: The left thyroid measures 4.5 x 1.4 x 1.6 cm. The left lobe of the thyroid is heterogeneous in echotexture without discrete nodules. Isthmus: The isthmus measures 3 mm in thickness. Cervical Lymphadenopathy: None. Impression: Heterogeneous mildly enlarged thyroid without discrete nodules. 08/15/2020: TSH 0.022 (0.510-4.300 uU/mL), free T4 3.5 (0.9 - 1.7 ng/dL), total T4 20.2 (5.5-10.2 ug/dL), free T3 8.6 (2.3-4.1 pg/mL), total T3 231 (79-165 ng/mL), prolactin 15.5 ng/mL), 09/07/2020: started on methimazole 5 mg daily. 05/31/2021: methimazole stopped, per outside notes. 12/2021: methimazole restarted per outside notes 01/01/2023: methimazole reduced to 5 mg x 0.5 tablets per day, per notes. 12/2022: TSH 4.28 (0.358 - 3.74 uIU/mL), free T4 0.76 (0.76-1.46 ng/dL), free T3 2.2 (2.18-3.98 pg/mL), at [facility]. 03/06/2023; Follow up visit with Dr Juan Carlos Garcia in [place]. Plan was methimazole 5 mg x five total pills per week. [facility] 03-19-2023 History of Presen t illness Narrative Note: The following is an abstracted note of the either a previous or a new History of Present Illness. This is in prep for an up-coming appointment or a summary update of a disease state. This is not a wdeb-at-khfz encounter. Previous history as follows: 09/27/2019: Ultrasound thyroid (at [facility]): Right Thyroid Lobe: The right thyroid measures 6.0 x 1.3 x 1.5 cm. The right lobe of the thyroid is heterogeneous in echotexture without discrete nodules. Left Thyroid Lobe: The left thyroid measures 4.5 x 1.4 x 1.6 cm. The left lobe of the thyroid is heterogeneous in echotexture without discrete nodules. Isthmus: The isthmus measures 3 mm in thickness. Cervical Lymphadenopathy: None. Impression: Heterogeneous mildly enlarged thyroid without discrete nodules. 08/15/2020: TSH 0.022 (0.510-4.300 uU/mL), free T4 3.5 (0.9 - 1.7 ng/dL), total T4 20.2 (5.5-10.2 ug/dL), free T3 8.6 (2.3-4.1 pg/mL), total T3 231 (79-165 ng/mL), prolactin 15.5 ng/mL), 09/07/2020: started on methimazole 5 mg daily. 05/31/2021: methimazole stopped, per outside notes. 12/2021: methimazole restarted per outside notes 01/01/2023: methimazole reduced to 5 mg x 0.5 tablets per day, per notes. 12/2022: TSH 4.28 (0.358 - 3.74 uIU/mL), free T4 0.76 (0.76-1.46 ng/dL), free T3 2.2 (2.18-3.98 pg/mL), at [facility]. 03/06/2023; Follow up visit with Dr Juan Carlos Garcia in [place]. Plan was methimazole 5 mg x five total pills per week. documented in this encounter [facility] 03-16-2023 Miscellaneous Notes Patient has been identified by name and date of : Yes Patient phones for refill(s): Requested Prescriptions Pending Prescriptions Disp Refills citalopram hydrobromide (CELEXA) 10 mg tablet 30 tablet 1 Sig: Take 1 tablet by mouth once daily. Date of last office visit in primary care: CLAU 10/23/22 NOV not scheduled Last 2 Encounter Wt Readings: Date: Wt: 01/26/2023 60.3 kg (133 lb) 10/23/2022 59.4 kg (131 lb) Please advise. Thank you. VLADIMIR Steel documented in this encounter [facility] 01-26-2023 Note HNO ID: [id number] Author: YVAN Narvaez Service: ? Author Type: Physician Manager Electronic Type: Progress Notes Filed: 01/26/2023 4:50 PM Note Text: This note was created using [employer]. Subjective Beronica Conner is a 22 year old female. HPI 22-year-old female presents for sore throat, ear pain, cough. Patient states that she has had sore throat, cough, congestion for the past 4 days. States that today she started getting right ear pain. She has history of ear infections in the past. No fevers. No vomiting or diarrhea. Still able to eat and drink. States her boyfriend was sick with a cold last week. No other complaints. PAST MEDICAL HISTORY Diagnosis Date Allergic rhinitis, cause unspecified Hyperthyroidism PMH - PAST MEDICAL HISTORY OF 01/16/2012 normal color vision PMH - PAST MEDICAL HISTORY OF eczema Tear, knee, medial meniscus 04/02/2018 PAST SURGICAL HISTORY Procedure Laterality Date ARTHROTOMY W/MENISCUS REPAIR KNEE Right 04/02/2018 ORAL SURGERY PROCEDURE [place] teeth TYMPANOSTOMY LOCAL/TOPICAL ANESTHESIA ALLERGIES Cats ,Dogs [Other]; Coconut; Environmental Allergies [Other]; Ether For Anesthesia [Ether]; Peanuts; and Tree Nuts [Other] MEDICATIONS citalopram hydrobromide (CELEXA) 10 mg tablet Take 1 tablet by mouth once daily. multivit with calcium,iron,min (WOMEN'S DAILY MULTIVITAMIN ORAL) Take by mouth. methIMAzole (TAPAZOLE) 5 mg tablet Take by mouth. EPINEPHrine (AUVI-Q) 0.3 mg/0.3 mL auto-injector Inject to the anterior thigh as directed by signs and symptoms in the allergy action plan. If used the patient must seek emergency medical care. May administer a second dose after 5 minutes for failure to respond or worsening symptoms while awaiting EMS. Dispense 2 twin packs with trainers acetaminophen (TYLENOL) 325 mg tablet Take 650 mg by mouth every 6 hours as needed. diphenhydrAMINE (BENADRYL) 25 mg capsule Take 1-2 capsules by mouth every 6 hours as needed. FAMILY HISTORY Problem Relation Age of Onset Thyroid Mother hypothyroid Heart Mother bradycardia Hyperlipidemia Father Hypertension Father No Known Problems Sister younger Hypertension Maternal Grandmother Heart Maternal Grandmother aortic valve disorder, open heart surgery other (high cholesterol) Maternal Grandmother Emphysema Maternal Grandfather Cancer Maternal Grandfather Lung, was smoker, in 70's Diabetes Paternal Grandmother Heart Paternal Grandfather 60's Thyroid Other great aunt thyroid cancer Social History Tobacco Use Smoking status: Never Smokeless tobacco: Never Vaping Use Vaping Use: Never used Substance Use Topics Alcohol use: Yes Comment: Socially, rarely Drug use: No Review of Systems Constitutional: Negative for chills and fever. HENT: Positive for congestion, ear pain and sore throat. Respiratory: Positive for cough. Negative for shortness of breath. Cardiovascular: Negative for chest pain. Gastrointestinal: Negative for diarrhea and vomiting. Objective BP 100/62 Pulse (!) 58 Temp 36.5 ?C (97.7 ?F) Resp 16 Wt 60.3 kg (133 lb) LMP 05/19/2022 (Exact Date) SpO2 96% BMI 19.64 kg/m? Physical Exam Vitals reviewed. Constitutional: General: She is not in acute distress. Appearance: Normal appearance. She is not toxic-appearing. HENT: Right Ear: Ear canal normal. A middle ear effusion is present. Tympanic membrane is erythematous. Left Ear: Tympanic membrane and ear canal normal. Nose: Nose normal. Mouth/Throat: Mouth: Mucous membranes are moist. Pharynx: Posterior oropharyngeal erythema present. No oropharyngeal exudate. Eyes: Conjunctiva/sclera: Conjunctivae normal. Cardiovascular: Rate and Rhythm: Normal rate and regular rhythm. Pulmonary: Effort: Pulmonary effort is normal. Breath sounds: Normal breath sounds. Neurological: Mental Status: She is alert. Assessment and Plan ASSESSMENT/PLAN: 1. Sore throat - ICD9: 462, ICD10: J02.9 (primary diagnosis) - suspect viral - Alere Strep Test negative, no culture pending - Discussed supportive care treatment with fluids, rest and analgesia. - STREP A MOLECULAR (POC) 2. Acute otitis media, right - ICD9: 382.9, ICD10: H66.91 - Will begin treatment with Amoxicillin for 7 days - Supportive care with plenty of fluids, rest, and analgesia prn. Diagnosis and treatment plan were discussed and questions were answered to the patient's satisfaction. Pt acknowledged understanding of concepts and follow up plan. Specific signs and symptoms that would indicate the need for higher level of care were discussed in detail warranting prompt ER evaluation. YVAN Narvaez [facility] 01-26-2023 History of Presen t illness Narrative This note was created using [employer]. Subjective Beronica Conner is a 22 year old female. HPI 22-year-old female presents for sore throat, ear pain, cough. Patient states that she has had sore throat, cough, congestion for the past 4 days. States that today she started getting right ear pain. She has history of ear infections in the past. No fevers. No vomiting or diarrhea. Still able to eat and drink. States her boyfriend was sick with a cold last week. No other complaints. PAST MEDICAL HISTORY Diagnosis Date Allergic rhinitis, cause unspecified Hyperthyroidism PMH - PAST MEDICAL HISTORY OF 01/16/2012 normal color vision PMH - PAST MEDICAL HISTORY OF eczema Tear, knee, medial meniscus 04/02/2018 PAST SURGICAL HISTORY Procedure Laterality Date ARTHROTOMY W/MENISCUS REPAIR KNEE Right 04/02/2018 ORAL SURGERY PROCEDURE [place] teeth TYMPANOSTOMY LOCAL/TOPICAL ANESTHESIA ALLERGIES Cats ,Dogs [Other]; Coconut; Environmental Allergies [Other]; Ether For Anesthesia [Ether]; Peanuts; and Tree Nuts [Other] MEDICATIONS citalopram hydrobromide (CELEXA) 10 mg tablet Take 1 tablet by mouth once daily. multivit with calcium,iron,min (WOMEN'S DAILY MULTIVITAMIN ORAL) Take by mouth. methIMAzole (TAPAZOLE) 5 mg tablet Take by mouth. EPINEPHrine (AUVI-Q) 0.3 mg/0.3 mL auto-injector Inject to the anterior thigh as directed by signs and symptoms in the allergy action plan. If used the patient must seek emergency medical care. May administer a second dose after 5 minutes for failure to respond or worsening symptoms while awaiting EMS. Dispense 2 twin packs with trainers acetaminophen (TYLENOL) 325 mg tablet Take 650 mg by mouth every 6 hours as needed. diphenhydrAMINE (BENADRYL) 25 mg capsule Take 1-2 capsules by mouth every 6 hours as needed. FAMILY HISTORY Problem Relation Age of Onset Thyroid Mother hypothyroid Heart Mother bradycardia Hyperlipidemia Father Hypertension Father No Known Problems Sister younger Hypertension Maternal Grandmother Heart Maternal Grandmother aortic valve disorder, open heart surgery other (high cholesterol) Maternal Grandmother Emphysema Maternal Grandfather Cancer Maternal Grandfather Lung, was smoker, in 70's Diabetes Paternal Grandmother Heart Paternal Grandfather 60's Thyroid Other great aunt thyroid cancer Social History Tobacco Use Smoking status: Never Smokeless tobacco: Never Vaping Use Vaping Use: Never used Substance Use Topics Alcohol use: Yes Comment: Socially, rarely Drug use: No Review of Systems Constitutional: Negative for chills and fever. HENT: Positive for congestion, ear pain and sore throat. Respiratory: Positive for cough. Negative for shortness of breath. Cardiovascular: Negative for chest pain. Gastrointestinal: Negative for diarrhea and vomiting. Objective BP 100/62 Pulse (!) 58 Temp 36.5 C (97.7 F) Resp 16 Wt 60.3 kg (133 lb) LMP 05/19/2022 (Exact Date) SpO2 96% BMI 19.64 kg/m Physical Exam Vitals reviewed. Constitutional: General: She is not in acute distress. Appearance: Normal appearance. She is not toxic-appearing. HENT: Right Ear: Ear canal normal. A middle ear effusion is present. Tympanic membrane is erythematous. Left Ear: Tympanic membrane and ear canal normal. Nose: Nose normal. Mouth/Throat: Mouth: Mucous membranes are moist. Pharynx: Posterior oropharyngeal erythema present. No oropharyngeal exudate. Eyes: Conjunctiva/sclera: Conjunctivae normal. Cardiovascular: Rate and Rhythm: Normal rate and regular rhythm. Pulmonary: Effort: Pulmonary effort is normal. Breath sounds: Normal breath sounds. Neurological: Mental Status: She is alert. Assessment and Plan ASSESSMENT/PLAN: 1. Sore throat - ICD9: 462, ICD10: J02.9 (primary diagnosis) - suspect viral - Alere Strep Test negative, no culture pending - Discussed supportive care treatment with fluids, rest and analgesia. - STREP A MOLECULAR (POC) 2. Acute otitis media, right - ICD9: 382.9, ICD10: H66.91 - Will begin treatment with Amoxicillin for 7 days - Supportive care with plenty of fluids, rest, and analgesia prn. Diagnosis and treatment plan were discussed and questions were answered to the patient's satisfaction. Pt acknowledged understanding of concepts and follow up plan. Specific signs and symptoms that would indicate the need for higher level of care were discussed in detail warranting prompt ER evaluation. YVAN Narvaez documented in this encounter [facility] 01-14-2023 Miscellaneous Notes Patient phones requesting refills as follows: Requested Prescriptions Pending Prescriptions Disp Refills citalopram hydrobromide (CELEXA) 10 mg tablet 30 tablet 1 Sig: Take 1 tablet by mouth once daily. CLAU-10/23/22 Labs-09/12/22 NOV-none Please review and advise. Lisa Balderrama LPN documented in this encounter [facility] 10-23-2022 Note HNO ID: [id number] Author: Ena Balderas APRN.SPECIMEN PREPARATION ASSISTANT Service: ? Author Type: Nurse Practitioner Type: Progress Notes Filed: 10/23/2022 10:05 AM Note Text: Chief Complaint Patient presents with: Medication Follow-up HPI Beronica Conner is a 22 year old female who presents here today for Above Complaints.. Today: Anxiety-at last appointment with myself on 09/12, started on Celexa 10mg. Feels calmer. Is still anxious at times, but not nearly as much. Was nauseated for 2 weeks but this has improved. Has started taking Senna-S and holding on her Miralax for now and this has been keeping her regular. Training for a half marathon on May. When running feels like a pulling pain in right mid abdomen. Doesn't necessarily feel like a side stitch, but feels this could be a possibility. Is bad enough that she needs to hunch over. Does go away but takes a little while to improve. Past medical history, appointments, medications, allergies reviewed. Previous Medical History PAST MEDICAL HISTORY Diagnosis Date Allergic rhinitis, cause unspecified Hyperthyroidism PMH - PAST MEDICAL HISTORY OF 01/16/2012 normal color vision PMH - PAST MEDICAL HISTORY OF eczema Tear, knee, medial meniscus 04/02/2018 Previous Surgical History PAST SURGICAL HISTORY Procedure Laterality Date ARTHROTOMY W/MENISCUS REPAIR KNEE Right 04/02/2018 ORAL SURGERY PROCEDURE [place] teeth TYMPANOSTOMY LOCAL/TOPICAL ANESTHESIA Family History FAMILY HISTORY Problem Relation Age of Onset Thyroid Mother hypothyroid Heart Mother bradycardia Hyperlipidemia Father Hypertension Father No Known Problems Sister younger Hypertension Maternal Grandmother Heart Maternal Grandmother aortic valve disorder, open heart surgery other (high cholesterol) Maternal Grandmother Emphysema Maternal Grandfather Cancer Maternal Grandfather Lung, was smoker, in 70's Diabetes Paternal Grandmother Heart Paternal Grandfather 60's Thyroid Other great aunt thyroid cancer Patient Allergies ALLERGIES Allergen Reactions Cats ,Dogs [Other] Coconut Rash Environmental Aller* trees, grasses, weeds, ragweed Ether For Anesthesi* Intolerance Nausea-can have anesthesia-just premedicate for nausea following Peanuts and tree nuts Tree Nuts [Other] Other: See Comments positive test for tree nuts Current Medications Current Outpatient Medications on File Prior to Visit Medication Sig multivit with calcium,iron,min (WOMEN'S DAILY MULTIVITAMIN ORAL) Take by mouth. guaifenesin/dextromethorphan (MUCINEX DM ORAL) Take by mouth. citalopram hydrobromide (CELEXA) 10 mg tablet Take 1 tablet by mouth once daily. methIMAzole (TAPAZOLE) 5 mg tablet Take by mouth. EPINEPHrine (AUVI-Q) 0.3 mg/0.3 mL auto-injector Inject to the anterior thigh as directed by signs and symptoms in the allergy action plan. If used the patient must seek emergency medical care. May administer a second dose after 5 minutes for failure to respond or worsening symptoms while awaiting EMS. Dispense 2 twin packs with trainers acetaminophen (TYLENOL) 325 mg tablet Take 650 mg by mouth every 6 hours as needed. diphenhydrAMINE (BENADRYL) 25 mg capsule Take 1-2 capsules by mouth every 6 hours as needed. No current facility-administered medications on file prior to visit. Social History Social History Tobacco Use Smoking status: Never Smokeless tobacco: Never Vaping Use Vaping Use: Never used Substance Use Topics Alcohol use: Yes Comment: Socially, rarely Drug use: No Review of Symptoms REVIEW OF SYSTEMS See HPI, otherwise negative EXAM: BP 106/70 (BP Site: Left Arm, BP Position: Sitting, BP Cuff Size: Regular Adult) Pulse 62 Resp 16 Wt 59.4 kg (131 lb) LMP 05/19/2022 (Exact Date) SpO2 100% BMI 19.35 kg/m? General Appearance: Well appearing, alert, in no acute distress, well-hydrated, well nourished.. Lungs: Lungs clear to auscultation. No wheezing, rhonchi, rales.. Heart: RRR without murmur, gallop, or rubs. No ectopy. Abdomen: Normal abdominal exam, Abdomen soft, non-tender. Bowel sounds normal. No masses, organomegaly. Psychiatric: pleasant, cooperative. Health Maintenance List SPIROMETRY Never done DEPRESSION ASSESSMENT Never done INFLUENZA(1) due on 01/30/2023 DTAP,TDAP,TD(7 - Td or Tdap) due on 09/12/2023 HPV VACCINE(1 - 2-dose series) due on 09/12/2023 COVID-19 VACCINE(1) due on 09/12/2023 PNEUMOCOCCAL(1 - PCV) due on 09/12/2023 GC (GONORRHEA) SCREENING (18-24) due on 05/20/2023 CHLAMYDIA SCREENING (18-24) due on 05/20/2023 ANNUAL PCP TEAM CHRONIC DISEASE VISIT due on 09/12/2023 PAP TESTING due on 07/25/2024 HEPATITIS B Completed MENINGOCOCCAL B: Consider based on risk Completed HEPATITIS C SCREENING Completed HIV SCREENING Completed Data reviewed Previous records, office notes ASSESSMENT/PLAN: 1. CRYSTAL (generalized anxiety (more content not included)... [facility] 10-23-2022 History of Presen t illness Narrative Chief Complaint Patient presents with: Medication Follow-up HPI Beronica Conner is a 22 year old female who presents here today for Above Complaints.. Today: Anxiety-at last appointment with myself on 09/12, started on Celexa 10mg. Feels calmer. Is still anxious at times, but not nearly as much. Was nauseated for 2 weeks but this has improved. Has started taking Senna-S and holding on her Miralax for now and this has been keeping her regular. Training for a half marathon on May. When running feels like a pulling pain in right mid abdomen. Doesn't necessarily feel like a side stitch, but feels this could be a possibility. Is bad enough that she needs to hunch over. Does go away but takes a little while to improve. Past medical history, appointments, medications, allergies reviewed. Previous Medical History PAST MEDICAL HISTORY Diagnosis Date Allergic rhinitis, cause unspecified Hyperthyroidism PMH - PAST MEDICAL HISTORY OF 01/16/2012 normal color vision PMH - PAST MEDICAL HISTORY OF eczema Tear, knee, medial meniscus 04/02/2018 Previous Surgical History PAST SURGICAL HISTORY Procedure Laterality Date ARTHROTOMY W/MENISCUS REPAIR KNEE Right 04/02/2018 ORAL SURGERY PROCEDURE [place] teeth TYMPANOSTOMY LOCAL/TOPICAL ANESTHESIA Family History FAMILY HISTORY Problem Relation Age of Onset Thyroid Mother hypothyroid Heart Mother bradycardia Hyperlipidemia Father Hypertension Father No Known Problems Sister younger Hypertension Maternal Grandmother Heart Maternal Grandmother aortic valve disorder, open heart surgery other (high cholesterol) Maternal Grandmother Emphysema Maternal Grandfather Cancer Maternal Grandfather Lung, was smoker, in 70's Diabetes Paternal Grandmother Heart Paternal Grandfather 60's Thyroid Other great aunt thyroid cancer Patient Allergies ALLERGIES Allergen Reactions Cats ,Dogs [Other] Coconut Rash Environmental Aller* trees, grasses, weeds, ragweed Ether For Anesthesi* Intolerance Nausea-can have anesthesia-just premedicate for nausea following Peanuts and tree nuts Tree Nuts [Other] Other: See Comments positive test for tree nuts Current Medications Current Outpatient Medications on File Prior to Visit Medication Sig multivit with calcium,iron,min (WOMEN'S DAILY MULTIVITAMIN ORAL) Take by mouth. guaifenesin/dextromethorphan (MUCINEX DM ORAL) Take by mouth. citalopram hydrobromide (CELEXA) 10 mg tablet Take 1 tablet by mouth once daily. methIMAzole (TAPAZOLE) 5 mg tablet Take by mouth. EPINEPHrine (AUVI-Q) 0.3 mg/0.3 mL auto-injector Inject to the anterior thigh as directed by signs and symptoms in the allergy action plan. If used the patient must seek emergency medical care. May administer a second dose after 5 minutes for failure to respond or worsening symptoms while awaiting EMS. Dispense 2 twin packs with trainers acetaminophen (TYLENOL) 325 mg tablet Take 650 mg by mouth every 6 hours as needed. diphenhydrAMINE (BENADRYL) 25 mg capsule Take 1-2 capsules by mouth every 6 hours as needed. No current facility-administered medications on file prior to visit. Social History Social History Tobacco Use Smoking status: Never Smokeless tobacco: Never Vaping Use Vaping Use: Never used Substance Use Topics Alcohol use: Yes Comment: Socially, rarely Drug use: No Review of Symptoms REVIEW OF SYSTEMS See HPI, otherwise negative EXAM: BP 106/70 (BP Site: Left Arm, BP Position: Sitting, BP Cuff Size: Regular Adult) Pulse 62 Resp 16 Wt 59.4 kg (131 lb) LMP 05/19/2022 (Exact Date) SpO2 100% BMI 19.35 kg/m General Appearance: Well appearing, alert, in no acute distress, well-hydrated, well nourished.. Lungs: Lungs clear to auscultation. No wheezing, rhonchi, rales.. Heart: RRR without murmur, gallop, or rubs. No ectopy. Abdomen: Normal abdominal exam, Abdomen soft, non-tender. Bowel sounds normal. No masses, organomegaly. Psychiatric: pleasant, cooperative. Health Maintenance List SPIROMETRY Never done DEPRESSION ASSESSMENT Never done INFLUENZA(1) due on 01/30/2023 DTAP,TDAP,TD(7 - Td or Tdap) due on 09/12/2023 HPV VACCINE(1 - 2-dose series) due on 09/12/2023 COVID-19 VACCINE(1) due on 09/12/2023 PNEUMOCOCCAL(1 - PCV) due on 09/12/2023 GC (GONORRHEA) SCREENING (18-24) due on 05/20/2023 CHLAMYDIA SCREENING (18-24) due on 05/20/2023 ANNUAL PCP TEAM CHRONIC DISEASE VISIT due on 09/12/2023 PAP TESTING due on 07/25/2024 HEPATITIS B Completed MENINGOCOCCAL B: Consider based on risk Completed HEPATITIS C SCREENING Completed HIV SCREENING Completed Data reviewed Previous records, office notes ASSESSMENT/PLAN: 1. CRYSTAL (generalized anxiety disorder) - ICD9: 300.02, ICD10: F41.1 (primary diagnosis) Continue current Celexa 10mg dose, this is working well for her. Follow up in 3 months, sooner if necessary. 2. Chronic constipation - ICD9: 564.00, ICD10: K59.09 Improving with Senna-S daily. Is holding on Miralax for now, but ok to restart if necessary. 3. Periumbilical abdominal pain - ICD9: 789.05, ICD10: R10.33 To right side of umbilicus, with running. Recommend making sure to stay hydrated. Suspect muscular etiology. Will discuss with collaborating physician as well. Ena Balderas APRN.CNP documented in this encounter [facility] 2022 Miscellaneous Notes Faxed request and will place in RS inbox when received. Siobhan Go Please obtain report from of patient's thyroid ultrasound for review. Ena Balderas APRN.CNP documented in this encounter [facility] 09-12-2022 Note HNO ID: [id number] Author: Ena Balderas APRN.CNP Service: ? Author Type: Nurse Practitioner Type: Progress Notes Filed: 09/12/2022 2:41 PM Note Text: Chief Complaint Patient presents with: Establish Care Constipation HPI Beronica Conner is a 21 year old female who presents here today for Above Complaints.. Today: Constipation-has to take Metamucil every night or will be constipated for about a week. Drinking Olipop fiber drink daily. Has been going on for 2-3 years. Thyroid-sees Juan Carlos Garcia with [facility], has labs drawn last in June. Noticing anxiety and worry, never had panic attack, worsening over the last 2 years. Tends to overthink things. Does not affect her work. Occasional irritability with hormones and if overstimulated. Doesn't do counseling or therapy. Sleeps well, anxiety does not affect her at night. Past medical history, appointments, medications, allergies reviewed. Previous Medical History PAST MEDICAL HISTORY Diagnosis Date Allergic rhinitis, cause unspecified Hyperthyroidism PMH - PAST MEDICAL HISTORY OF 01/16/2012 normal color vision PMH - PAST MEDICAL HISTORY OF eczema Tear, knee, medial meniscus 04/02/2018 Previous Surgical History PAST SURGICAL HISTORY Procedure Laterality Date ARTHROTOMY W/MENISCUS REPAIR KNEE Right 04/02/2018 ORAL SURGERY PROCEDURE [place] teeth TYMPANOSTOMY LOCAL/TOPICAL ANESTHESIA Family History FAMILY HISTORY Problem Relation Age of Onset Thyroid Mother hypothyroid Heart Mother bradycardia Hyperlipidemia Father Hypertension Father No Known Problems Sister Hypertension Maternal Grandmother Heart Maternal Grandmother aortic valve disorder, open heart surgery other (high cholesterol) Maternal Grandmother Emphysema Maternal Grandfather Cancer Maternal Grandfather Lung Diabetes Paternal Grandmother Patient Allergies ALLERGIES Allergen Reactions Cats ,Dogs [Other] Coconut Rash Environmental Aller* trees, grasses, weeds, ragweed Peanuts and tree nuts Tree Nuts [Other] Other: See Comments positive test for tree nuts Current Medications Current Outpatient Medications on File Prior to Visit Medication Sig guaifenesin/dextromethorphan (MUCINEX DM ORAL) Take by mouth. methIMAzole (TAPAZOLE) 5 mg tablet Take by mouth. EPINEPHrine (AUVI-Q) 0.3 mg/0.3 mL auto-injector Inject to the anterior thigh as directed by signs and symptoms in the allergy action plan. If used the patient must seek emergency medical care. May administer a second dose after 5 minutes for failure to respond or worsening symptoms while awaiting EMS. Dispense 2 twin packs with trainers acetaminophen (TYLENOL) 325 mg tablet Take 650 mg by mouth every 6 hours as needed. diphenhydrAMINE (BENADRYL) 25 mg capsule Take 1-2 capsules by mouth every 6 hours as needed. benzonatate (TESSALON PERLES) 100 mg capsule Take 1 capsule by mouth three times daily as needed for cough. (Patient not taking: Reported on 09/12/2022) No current facility-administered medications on file prior to visit. Social History Social History Tobacco Use Smoking status: Never Smokeless tobacco: Never Vaping Use Vaping Use: Never used Substance Use Topics Alcohol use: Yes Comment: Socially Drug use: No Review of Symptoms REVIEW OF SYSTEMS See HPI, otherwise negative EXAM: BP 118/80 (BP Site: Left Arm, BP Position: Sitting, BP Cuff Size: Regular Adult) Pulse 85 Resp 16 Wt 60.1 kg (132 lb 9.6 oz) LMP 05/19/2022 (Exact Date) SpO2 97% BMI 19.58 kg/m? General Appearance: Well appearing, alert, in no acute distress, well-hydrated, well nourished. and Thin. Skin: Skin color, texture, turgor normal. Brown round mole with well approximated edges, measures 9x8mm to right lower scapula Head: Normocephalic, no masses, lesions, tenderness or abnormalities. Eyes: Anicteric sclera. Pupils are equally round and reactive to light. Extraocular movements are intact. . Ears: External ears normal, canals clear. Nose/Sinuses: Nares normal, septum midline, mucosa normal, no drainage or sinus tenderness. Oropharynx: Lips, mucosa, and tongue normal, teeth and gums normal, oropharynx normal. Neck: Supple, no adenopathy; thyroid symmetric, normal size, no bruits. Back:no pain to palpation of vertebrae, good flexion and extension, good range of motion, no muscle tenderness, motor and sensory appear to be normal Lungs: Lungs clear to auscultation. No wheezing, rhonchi, rales.. Heart: RRR without murmur, gallop, or rubs. No ectopy. Abdomen: Normal abdominal exam, Abdomen soft, non-tender. Bowel sounds normal. No masses, organomegaly. Extremities: No deformities, edema, skin discoloration, clubbing or cyanosis. Good capillary refill. . Musculoskeletal: No joint swelling, deformity, or tenderness. Peripheral Pulses: Normal. Neurologic: Gait normal. Reflexes normal and symmetric. Sensation grossl (more content not included)... [facility] 09-12-2022 Instructions Ena Balderas APRN.CNP - 09/12/2022 8:40 AM EST Try daily Miralax-1 scoop. For a daily stool softener/laxative I recommend Senna-S. Start the Celexa 1 tablet daily. Have your labs drawn. documented in this encounter [facility] 09-12-2022 History of Presen t illness Narrative Chief Complaint Patient presents with: Establish Care Constipation HPI Beronica Conner is a 21 year old female who presents here today for Above Complaints.. Today: Constipation-has to take Metamucil every night or will be constipated for about a week. Drinking Olipop fiber drink daily. Has been going on for 2-3 years. Thyroid-sees Juna Carlos Garcia with [place], has labs drawn last in June. Noticing anxiety and worry, never had panic attack, worsening over the last 2 years. Tends to overthink things. Does not affect her work. Occasional irritability with hormones and if overstimulated. Doesn't do counseling or therapy. Sleeps well, anxiety does not affect her at night. Past medical history, appointments, medications, allergies reviewed. Previous Medical History PAST MEDICAL HISTORY Diagnosis Date Allergic rhinitis, cause unspecified Hyperthyroidism PMH - PAST MEDICAL HISTORY OF 01/16/2012 normal color vision PMH - PAST MEDICAL HISTORY OF eczema Tear, knee, medial meniscus 04/02/2018 Previous Surgical History PAST SURGICAL HISTORY Procedure Laterality Date ARTHROTOMY W/MENISCUS REPAIR KNEE Right 04/02/2018 ORAL SURGERY PROCEDURE [place] teeth TYMPANOSTOMY LOCAL/TOPICAL ANESTHESIA Family History FAMILY HISTORY Problem Relation Age of Onset Thyroid Mother hypothyroid Heart Mother bradycardia Hyperlipidemia Father Hypertension Father No Known Problems Sister Hypertension Maternal Grandmother Heart Maternal Grandmother aortic valve disorder, open heart surgery other (high cholesterol) Maternal Grandmother Emphysema Maternal Grandfather Cancer Maternal Grandfather Lung Diabetes Paternal Grandmother Patient Allergies ALLERGIES Allergen Reactions Cats ,Dogs [Other] Coconut Rash Environmental Aller* trees, grasses, weeds, ragweed Peanuts and tree nuts Tree Nuts [Other] Other: See Comments positive test for tree nuts Current Medications Current Outpatient Medications on File Prior to Visit Medication Sig guaifenesin/dextromethorphan (MUCINEX DM ORAL) Take by mouth. methIMAzole (TAPAZOLE) 5 mg tablet Take by mouth. EPINEPHrine (AUVI-Q) 0.3 mg/0.3 mL auto-injector Inject to the anterior thigh as directed by signs and symptoms in the allergy action plan. If used the patient must seek emergency medical care. May administer a second dose after 5 minutes for failure to respond or worsening symptoms while awaiting EMS. Dispense 2 twin packs with trainers acetaminophen (TYLENOL) 325 mg tablet Take 650 mg by mouth every 6 hours as needed. diphenhydrAMINE (BENADRYL) 25 mg capsule Take 1-2 capsules by mouth every 6 hours as needed. benzonatate (TESSALON PERLES) 100 mg capsule Take 1 capsule by mouth three times daily as needed for cough. (Patient not taking: Reported on 09/12/2022) No current facility-administered medications on file prior to visit. Social History Social History Tobacco Use Smoking status: Never Smokeless tobacco: Never Vaping Use Vaping Use: Never used Substance Use Topics Alcohol use: Yes Comment: Socially Drug use: No Review of Symptoms REVIEW OF SYSTEMS See HPI, otherwise negative EXAM: BP 118/80 (BP Site: Left Arm, BP Position: Sitting, BP Cuff Size: Regular Adult) Pulse 85 Resp 16 Wt 60.1 kg (132 lb 9.6 oz) LMP 05/19/2022 (Exact Date) SpO2 97% BMI 19.58 kg/m General Appearance: Well appearing, alert, in no acute distress, well-hydrated, well nourished. and Thin. Skin: Skin color, texture, turgor normal. Brown round mole with well approximated edges, measures 9x8mm to right lower scapula Head: Normocephalic, no masses, lesions, tenderness or abnormalities. Eyes: Anicteric sclera. Pupils are equally round and reactive to light. Extraocular movements are intact. . Ears: External ears normal, canals clear. Nose/Sinuses: Nares normal, septum midline, mucosa normal, no drainage or sinus tenderness. Oropharynx: Lips, mucosa, and tongue normal, teeth and gums normal, oropharynx normal. Neck: Supple, no adenopathy; thyroid symmetric, normal size, no bruits. Back:no pain to palpation of vertebrae, good flexion and extension, good range of motion, no muscle tenderness, motor and sensory appear to be normal Lungs: Lungs clear to auscultation. No wheezing, rhonchi, rales.. Heart: RRR without murmur, gallop, or rubs. No ectopy. Abdomen: Normal abdominal exam, Abdomen soft, non-tender. Bowel sounds normal. No masses, organomegaly. Extremities: No deformities, edema, skin discoloration, clubbing or cyanosis. Good capillary refill. . Musculoskeletal: No joint swelling, deformity, or tenderness. Peripheral Pulses: Normal. Neurologic: Gait normal. Reflexes normal and symmetric. Sensation grossly intact.. Lymph Nodes: No cervical lymphadenopathy and No supraclavicular lymphadenopathy. Psychiatric: pleasant, cooperative. Health Maintenance List SPIROMETRY Never done ANNUAL PCP TEAM CHRONIC DISEASE VISIT Never done DEPRESSION ASSESSMENT Never done INFLUENZA(1) due on 01/30/2023 DTAP,TDAP,TD(7 - Td or Tdap) due on 09/12/2023 HPV VACCINE(1 - 2-dose series) due on 09/12/2023 COVID-19 VACCINE(1) due on 09/12/2023 PNEUMOCOCCAL(1 - PCV) due on 09/12/2023 GC (GONORRHEA) SCREENING (18-24) due on 05/20/2023 CHLAMYDIA SCREENING (18-24) due on 05/20/2023 PAP TESTING due on 07/25/2024 HEPATITIS B Completed MENINGOCOCCAL B: Consider based on risk Completed HEPATITIS C SCREENING Completed HIV SCREENING Completed Data reviewed Previous records, office notes ASSESSMENT/PLAN: 1. Well adult exam - ICD9: V70.0, ICD10: Z00.00 (primary diagnosis) - Counseled on healthy diet and regular exercise - Calcium intake with supplements or by diet of 1000 mg/day for under 50, 7624-1696 mg/day for 50+ - Follow up for annual exam in one year - CBC - VITAMIN D 25 HYDROXY - VITAMIN B12 BLOOD - COMP METABOLIC PANEL - LIPID PANEL BASIC 2. Hyperthyroidism - ICD9: 242.90, ICD10: E05.90 [address]. Follow[address] with Dr[address] Juan Carlos Garcia. 3. CRYSTAL (generalized anxiety disorder) - ICD9: 300.02, ICD10: F41.1 Begin Celexa daily. Follow up in 4-8 weeks. Consider counseling/therapy. - VITAMIN D 25 HYDROXY - VITAMIN B12 BLOOD 4. Chronic constipation - ICD9: 564.00, ICD10: K59.09 Recommend Miralax daily. Consider Senna-S. Get plenty of water, minimum of 60-80oz daily. 5. Encounter for vitamin deficiency screening - ICD9: V77.99, ICD10: Z13.21 - VITAMIN D 25 HYDROXY - VITAMIN B12 BLOOD 6. Screening for lipid disorders - ICD9: V77.91, ICD10: Z13.220 - LIPID PANEL BASIC Ean Balderas APRN.CNP documented in this encounter [facility] 09-09-2022 Note HNO ID: [id number] Author: Ac Du APRN.CNP Service: ? Author Type: Nurse Practitioner Type: Progress Notes Filed: 09/09/2022 8:05 AM Note Text: Subjective HPI Nontoxic-appearing female presents to urgent care with chief complaint of fever and cough. Duration of symptoms 3 days Associated symptoms with today's chief complaint are on and off headache, muscle aches, fatigue, nonproductive cough, and fever. Patient stated symptoms started abruptly. Patient states they have used qijt-ydi-pustmyj medication with some success. Patient states they were in contact with individuals who were diagnosed with COVID-19. Did take a negative COVID-19 home test. Is not vaccinated. Did have COVID-19 in January of last year. Patient denies any pain at this time. Patient denies any visual changes, visual disturbance, shortness of breath, rash, exercise intolerance, pleuritic pain, productive cough, abdominal pain, nausea, vomiting, chest pain, or change in bowel or bladder habits. Past medical history prescription medication use allergies reviewed. Denies chance of is not breast-feeding. .Patient presents with: Nasal Congestion: drainage, cough, sinus pressure and bodyaches x 3 days PAST MEDICAL HISTORY Diagnosis Date Allergic rhinitis, cause unspecified Hyperthyroidism PMH - PAST MEDICAL HISTORY OF 01/16/2012 normal color vision PMH - PAST MEDICAL HISTORY OF eczema Tear, knee, medial meniscus 04/02/2018 PAST SURGICAL HISTORY Procedure Laterality Date ARTHROTOMY W/MENISCUS REPAIR KNEE Right 04/02/2018 ORAL SURGERY PROCEDURE [place] teeth TYMPANOSTOMY LOCAL/TOPICAL ANESTHESIA ALLERGIES Cats ,Dogs [Other]; Coconut; Environmental Allergies [Other]; Peanuts; and Tree Nuts [Other] MEDICATIONS methIMAzole (TAPAZOLE) 5 mg tablet Take by mouth. EPINEPHrine (AUVI-Q) 0.3 mg/0.3 mL auto-injector Inject to the anterior thigh as directed by signs and symptoms in the allergy action plan. If used the patient must seek emergency medical care. May administer a second dose after 5 minutes for failure to respond or worsening symptoms while awaiting EMS. Dispense 2 twin packs with trainers acetaminophen (TYLENOL) 325 mg tablet Take 650 mg by mouth every 6 hours as needed. diphenhydrAMINE (BENADRYL) 25 mg capsule Take 1-2 capsules by mouth every 6 hours as needed. FAMILY HISTORY Problem Relation Age of Onset Thyroid Mother hypothyroid Heart Mother bradycardia Hyperlipidemia Father Hypertension Father No Known Problems Sister Hypertension Maternal Grandmother Heart Maternal Grandmother aortic valve disorder, open heart surgery other (high cholesterol) Maternal Grandmother Emphysema Maternal Grandfather Cancer Maternal Grandfather Lung Diabetes Paternal Grandmother Social History Tobacco Use Smoking status: Never Smokeless tobacco: Never Vaping Use Vaping Use: Never used Substance Use Topics Alcohol use: Yes Comment: Socially Drug use: No BP 120/62 Pulse 78 Temp 37.1 ?C (98.8 ?F) Resp 16 Wt 60.8 kg (134 lb) LMP 05/19/2022 (Exact Date) SpO2 99% BMI 19.79 kg/m? Review of Systems Constitutional: Positive for chills and fever. Negative for malaise/fatigue. HENT: Positive for congestion, ear pain, sinus pain and sore throat. Negative for ear discharge. Eyes: Negative for blurred vision, pain, discharge and redness. Respiratory: Positive for cough. Negative for hemoptysis, sputum production, shortness of breath, wheezing and stridor. Cardiovascular: Negative for chest pain. Gastrointestinal: Negative for abdominal pain, diarrhea, nausea and vomiting. Genitourinary: Negative. Musculoskeletal: Positive for myalgias. Skin: Negative for itching and rash. Neurological: Positive for headaches. Negative for dizziness. Objective Physical Exam Constitutional: General: She is not in acute distress. Appearance: She is not diaphoretic. HENT: Head: Normocephalic. Right Ear: Tympanic membrane, ear canal and external ear normal. Left Ear: Tympanic membrane, ear canal and external ear normal. Nose: Rhinorrhea present. Mouth/Throat: Mouth: Mucous membranes are moist. Pharynx: Oropharynx is clear. No oropharyngeal exudate or posterior oropharyngeal erythema. Eyes: Conjunctiva/sclera: Conjunctivae normal. Pupils: Pupils are equal, round, and reactive to light. Cardiovascular: Rate and Rhythm: Normal rate and regular rhythm. Heart sounds: Normal heart sounds. Pulmonary: Effort: Pulmonary effort is normal. No tachypnea, accessory muscle usage or respiratory distress. Breath sounds: Normal breath sounds. No stridor. No wheezing, rhonchi or rales. Abdominal: General: There is no distension. Palpations: Abdomen is soft. Tenderness: There is no abdominal tenderness. There is no guarding or rebound. Musculoskeletal: Cervical back: Normal range of motion and neck supple. No rigidity or tender (more content not included)... [facility] 09-09-2022 Instructions Ac Du APRN.SPECIMEN PREPARATION ASSISTANT - 09/09/2022 7:42 AM EST How to Manage Common Symptoms Associated with COVID for Adults Fever- Fever is a temperature over 100.4 F and can occur when the body is fighting an infection. To help treat a fever: Drink plenty of fluids and stay well hydrated. Eat small amounts of easy to digest food. Rest. Your body needs rest to recover, but getting up and moving around the house frequently is a good idea. You should try to continue doing your normal daily activities (bathing, toileting, grooming, cooking), though you will probably feel tired, and need to rest often. Avoid any heavy activity or exercise, as this will increase your body temperature. Dress in light clothing and stay covered in a light sheet. Keep the room temperature cool. Take a slightly warm (not cold or cool) bath, or apply damp washcloths to the forehead and wrists. Cough- Cough is a common symptom associated with COVID and can be bothersome. To help treat a cough: Stay well hydrated. Try warm water or tea with lemon and/or honey to help soothe the cough. Use a humidifier to add moisture to the air. Try a product with menthol, like a cough drop or a rub for your chest such as Vicks, which can help reduce cough. Try cough drops. Avoid smoking and other strong odors or perfumes. Try breathing exercises to keep your lungs open and clear. Take a big deep breath through your nose and hold for 5 seconds before slowly releasing. Repeat frequently, while you are awake. Congestion- Runny nose or nasal congestion can occur with COVID. Treatment can help relieve symptoms: Try OTC nasal saline spray, or nasal saline rinse to relieve mucus congestion. Nasal strips can help keep nasal passages open, to increase airflow. Elevating your head with an extra pillow in bed can help reduce congestion. Using a humidifier can increase moisture in the air, and make breathing easier. Sore Throat- Another common symptom with COVID, can be managed at home by: Stay well hydrated. Gargle with salt water - mix teaspoon salt with 1 cup of warm water and gargle. This helps to loosen mucus in the back of the throat and may reduce discomfort. Try ice chips, popsicles or lozenges to soothe the throat. Nausea/Vomiting/Diarrhea- These are common symptoms, and staying hydrated is most important. If you are nauseous or vomiting, start with small sips of water every 10-15 minutes and increase as tolerated. You can try sucking an ice cube too. If tolerating, you can try pedialyte or Gatorade, or flat sprite or mily-bernard. Start slowly and increase as you are able to. Instead of meals, try smaller, more frequent snacks. Try eating bland foods like crackers, toast, rice, and applesauce. Avoid spicy, greasy or fried foods and dairy containing foods. Even if you aren't feeling hungry due to lack of smell or taste, it is important to try to take in some food when you are able. After drinking and eating, rest in an upright position for up to two hours as needed to help decrease nauseous feelings. Try closing your eyes, avoid moving and watching TV. Avoid strong odors that can make you feel more nauseated. When to seek emergency medical attention Look for emergency warning signs for COVID-19. If having any of these symptoms, seek emergency medical care immediately: Trouble breathing Persistent pain or pressure in the chest New confusion Inability to wake or stay awake Bluish lips or face *This list is not all possible symptoms. Please call your medical provider for any other symptoms that are severe or concerning to you. documented in this encounter [facility] 09-09-2022 History of Presen t illness Narrative Subjective HPI Nontoxic-appearing female presents to urgent care with chief complaint of fever and cough. Duration of symptoms 3 days Associated symptoms with today's chief complaint are on and off headache, muscle aches, fatigue, nonproductive cough, and fever. Patient stated symptoms started abruptly. Patient states they have used mfie-pgv-phavpsn medication with some success. Patient states they were in contact with individuals who were diagnosed with COVID-19. Did take a negative COVID-19 home test. Is not vaccinated. Did have COVID-19 in January of last year. Patient denies any pain at this time. Patient denies any visual changes, visual disturbance, shortness of breath, rash, exercise intolerance, pleuritic pain, productive cough, abdominal pain, nausea, vomiting, chest pain, or change in bowel or bladder habits. Past medical history prescription medication use allergies reviewed. Denies chance of is not breast-feeding. .Patient presents with: Nasal Congestion: drainage, cough, sinus pressure and bodyaches x 3 days PAST MEDICAL HISTORY Diagnosis Date Allergic rhinitis, cause unspecified Hyperthyroidism PMH - PAST MEDICAL HISTORY OF 01/16/2012 normal color vision PMH - PAST MEDICAL HISTORY OF eczema Tear, knee, medial meniscus 04/02/2018 PAST SURGICAL HISTORY Procedure Laterality Date ARTHROTOMY W/MENISCUS REPAIR KNEE Right 04/02/2018 ORAL SURGERY PROCEDURE [place] teeth TYMPANOSTOMY LOCAL/TOPICAL ANESTHESIA ALLERGIES Cats ,Dogs [Other]; Coconut; Environmental Allergies [Other]; Peanuts; and Tree Nuts [Other] MEDICATIONS methIMAzole (TAPAZOLE) 5 mg tablet Take by mouth. EPINEPHrine (AUVI-Q) 0.3 mg/0.3 mL auto-injector Inject to the anterior thigh as directed by signs and symptoms in the allergy action plan. If used the patient must seek emergency medical care. May administer a second dose after 5 minutes for failure to respond or worsening symptoms while awaiting EMS. Dispense 2 twin packs with trainers acetaminophen (TYLENOL) 325 mg tablet Take 650 mg by mouth every 6 hours as needed. diphenhydrAMINE (BENADRYL) 25 mg capsule Take 1-2 capsules by mouth every 6 hours as needed. FAMILY HISTORY Problem Relation Age of Onset Thyroid Mother hypothyroid Heart Mother bradycardia Hyperlipidemia Father Hypertension Father No Known Problems Sister Hypertension Maternal Grandmother Heart Maternal Grandmother aortic valve disorder, open heart surgery other (high cholesterol) Maternal Grandmother Emphysema Maternal Grandfather Cancer Maternal Grandfather Lung Diabetes Paternal Grandmother Social History Tobacco Use Smoking status: Never Smokeless tobacco: Never Vaping Use Vaping Use: Never used Substance Use Topics Alcohol use: Yes Comment: Socially Drug use: No BP 120/62 Pulse 78 Temp 37.1 C (98.8 F) Resp 16 Wt 60.8 kg (134 lb) LMP 05/19/2022 (Exact Date) SpO2 99% BMI 19.79 kg/m Review of Systems Constitutional: Positive for chills and fever. Negative for malaise/fatigue. HENT: Positive for congestion, ear pain, sinus pain and sore throat. Negative for ear discharge. Eyes: Negative for blurred vision, pain, discharge and redness. Respiratory: Positive for cough. Negative for hemoptysis, sputum production, shortness of breath, wheezing and stridor. Cardiovascular: Negative for chest pain. Gastrointestinal: Negative for abdominal pain, diarrhea, nausea and vomiting. Genitourinary: Negative. Musculoskeletal: Positive for myalgias. Skin: Negative for itching and rash. Neurological: Positive for headaches. Negative for dizziness. Objective Physical Exam Constitutional: General: She is not in acute distress. Appearance: She is not diaphoretic. HENT: Head: Normocephalic. Right Ear: Tympanic membrane, ear canal and external ear normal. Left Ear: Tympanic membrane, ear canal and external ear normal. Nose: Rhinorrhea present. Mouth/Throat: Mouth: Mucous membranes are moist. Pharynx: Oropharynx is clear. No oropharyngeal exudate or posterior oropharyngeal erythema. Eyes: Conjunctiva/sclera: Conjunctivae normal. Pupils: Pupils are equal, round, and reactive to light. Cardiovascular: Rate and Rhythm: Normal rate and regular rhythm. Heart sounds: Normal heart sounds. Pulmonary: Effort: Pulmonary effort is normal. No tachypnea, accessory muscle usage or respiratory distress. Breath sounds: Normal breath sounds. No stridor. No wheezing, rhonchi or rales. Abdominal: General: There is no distension. Palpations: Abdomen is soft. Tenderness: There is no abdominal tenderness. There is no guarding or rebound. Musculoskeletal: Cervical back: Normal range of motion and neck supple. No rigidity or tenderness. Lymphadenopathy: Cervical: No cervical adenopathy. Skin: General: Skin is warm and dry. Neurological: Mental Status: She is alert and oriented to person, place, and time. ASSESSMENT/PLAN: 1. Viral illness - ICD9: 079.99, ICD10: B34.9 - Discussed viral etiology and rationale for treatment. - Symptomatic treatment with prn analgesia - Supportive care with fluids and rest - 2019 CORONAVIRUS [place] Nuñez sent to pharmacy. Red flags to prompt elevation discussed. Patient will follow up with primary care provider as needed. Patient was instructed to immediately proceed to emergency room for any new, worsening, or symptoms lasting longer than anticipated. The patient's clinical presentation is otherwise unremarkable at this time. Based on exam and clinical finding, the patient is stable for discharge. Plan of care was discussed with patient. Patient verbalizes understanding and agrees to plan of care. This note was generated using [employer] software. It may contain errors in wording, punctuation, or spelling. Ac Du APRN.MARINA documented in this encounter [facility] 05-20-2022 Miscellaneous Notes Addended by: BERNARDA VARGAS on: 05/20/2022 11:51 AM Modules accepted: Orders documented in this encounter [facility] 05-20-2022 History of Presen t illness Narrative Beronica is a 21 year old who presents for an annual gynecologic exam without complaints. 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 Applying to Dental school. Boyfriend in school for Central Supply Technician. Menses: cycles every 30-35 days and 5-6 days of flow. Contraception: none. Stopped control pill 06/2021 because she wanted to see how she felt. Improved mood and in touch with emotions. Condoms. Current partner x 1 year HPV vaccine: No Last Pap: 07/31/2021 normal HPV: N/A History of abnormal pap: No Last mammogram: never Sexually active: Yes Time with current partner: x year Exercise: 2-3 times a week for 60-90 minutes. Type: strength training and cardio Diet: Regular Seatbelt use: Yes OB History T0 L0 SAB0 IAB0 Ectopic0 Multiple0 Live Births0 Milk House Worker History LMP: 05/19/2022 (Exact Date), Having periods Age at Menarche: Age at First : Age at Menopause: Milk House Worker History Comments: Sexual Activity: Yes; Male Contraception: No contraception data on record PAST MEDICAL HISTORY Diagnosis Date Allergic rhinitis, cause unspecified Hyperthyroidism PMH - PAST MEDICAL HISTORY OF 01/16/2012 normal color vision PMH - PAST MEDICAL HISTORY OF eczema Tear, knee, medial meniscus 04/02/2018 PAST SURGICAL HISTORY Procedure Laterality Date ARTHROTOMY W/MENISCUS REPAIR KNEE Right 04/02/2018 ORAL SURGERY PROCEDURE [place] teeth TYMPANOSTOMY LOCAL/TOPICAL ANESTHESIA FAMILY HISTORY Problem Relation Age of Onset Thyroid Mother hypothyroid Heart Mother bradycardia Hyperlipidemia Father Hypertension Father No Known Problems Sister Hypertension Maternal Grandmother Heart Maternal Grandmother aortic valve disorder, open heart surgery other (high cholesterol) Maternal Grandmother Emphysema Maternal Grandfather Cancer Maternal Grandfather Lung Diabetes Paternal Grandmother SOCIAL HISTORY Social History Tobacco Use Smoking status: Never Smokeless tobacco: Never Vaping Use Vaping Use: Never used Substance Use Topics Alcohol use: Yes Comment: Socially Drug use: No REVIEW OF SYSTEMS Abdomen: No abdominal pain, nausea, vomiting, diarrhea, or constipation. No bloating, early satiety, indigestion, or increased flatulence. Bladder: No dysuria, gross hematuria, urinary frequency, urinary urgency, or incontinence. Breast: No breast lumps, nipple d/c, overlying skin changes, redness or skin retraction. Allergies and current medication updated:Yes EXAM: BP 100/64 Ht 5' 9 (1.75m) Wt 136 lb 6.4 oz (61.9kg) LMP 05/19/2022 BMI 20.13 kg/(m^2). GENERAL: pleasant, female in no apparent distress HEENT: Normocephalic, atraumatic, mucus membranes moist, and no lesions NECK: Supple, full range of motion, no adenopathy, and thyroid normal DERMATOLOGY: Normal, without lesions, non-icteric, and non-hirsute BREAST: soft, non-tender, symmetric, no dominant mass, normal nipple-areolar complex, no lymphadenopathy, and no nipple discharge CHEST: Normal inspiratory effort ABDOMEN: soft, non-tender, and no masses PELVIC: external genitalia normal, normal Bartholin's glands, urethra, [place]'s glands, no vulvar lesions, no cervical lesions, good vaginal support, physiologic discharge present, normal appearing perineal body and perianal region BIMANUAL: uterus normal size, shape and consistency, no adnexal masses, and non-tender RECTOVAGINAL: deferred. NEURO: alert and oriented x3,exam grossly non-focal EXTREMITIES: normal ASSESSMENT/PLAN: 1. Encounter for gynecological examination (general) (routine) without abnormal findings - ICD9: V72.31, ICD10: Z01.419 (primary diagnosis) - Completed pelvic and breast exam - Encouraged monthly BSE - Follow up for annual exam in one year. 2. Screening examination for STD (sexually transmitted disease) - ICD9: V74.5, ICD10: Z11.3 3. control counseling - ICD9: V25.09, ICD10: Z30.09 1) Health maintenance: Pap/HPV up to date. Nutrition, exercise and routine health maintenance exams reviewed. Calcium/Vitamin D supplementation information provided. HPV vaccine: discussed, not interested 2) Contraception: condoms. Contraceptive options reviewed and information provided. 3) STD screening: Accepted STD check for Gonorrhea and Chlamydia. 4) Follow up one year or sooner as needed Bernarda Vargas APRN.CNM documented in this encounter [facility] 05-05-2022 History of Presen t illness Narrative Subjective HPI Nontoxic-appearing female presents urgent care chief complaint right ear pain. Duration symptoms 1 day. Associated symptoms right ear pain. States pain started slightly this morning worsened throughout the day. History of ear infections this feels similar. No OTC medications. States pain has worsened. Denied any known sick contacts. No ear trauma otorrhea. No hearing difficulties. Denies any fever body aches chills nausea vomiting abdominal pain change bowel or bladder habits. Past medical history prescription medication use allergies reviewed. .Patient presents with: Ear Pain: Right ear pain x 4 hrs ago PAST MEDICAL HISTORY Diagnosis Date Allergic rhinitis, cause unspecified Hyperthyroidism PMH - PAST MEDICAL HISTORY OF 01/16/2012 normal color vision PMH - PAST MEDICAL HISTORY OF eczema Tear, knee, medial meniscus 04/02/2018 PAST SURGICAL HISTORY Procedure Laterality Date ARTHROTOMY W/MENISCUS REPAIR KNEE Right 04/02/2018 ORAL SURGERY PROCEDURE [place] teeth TYMPANOSTOMY LOCAL/TOPICAL ANESTHESIA ALLERGIES Cats ,Dogs [Other]; Coconut; Environmental Allergies [Other]; Peanuts; and Tree Nuts [Other] MEDICATIONS Drospirenone-Ethinyl Estradiol (JOHNIE, 28,) 3-0.02 mg per tablet Take 1 tablet by mouth once daily. EPINEPHrine (AUVI-Q) 0.3 mg/0.3 mL auto-injector Inject to the anterior thigh as directed by signs and symptoms in the allergy action plan. If used the patient must seek emergency medical care. May administer a second dose after 5 minutes for failure to respond or worsening symptoms while awaiting EMS. Dispense 2 twin packs with trainers acetaminophen (TYLENOL) 325 mg tablet Take 650 mg by mouth every 6 hours as needed. diphenhydrAMINE (BENADRYL) 25 mg capsule Take 1-2 capsules by mouth every 6 hours as needed. FAMILY HISTORY Problem Relation Age of Onset Thyroid Mother hypothyroid Heart Mother bradycardia Hyperlipidemia Father Hypertension Father No Known Problems Sister Hypertension Maternal Grandmother Heart Maternal Grandmother aortic valve disorder, open heart surgery other (high cholesterol) Maternal Grandmother Emphysema Maternal Grandfather Cancer Maternal Grandfather Lung Diabetes Paternal Grandmother Social History Tobacco Use Smoking status: Never Smokeless tobacco: Never Vaping Use Vaping Use: Never used Substance Use Topics Alcohol use: Yes Comment: Socially Drug use: No BP 104/60 Pulse 61 Temp 36.6 C (97.8 F) Resp 21 Wt 62.1 kg (136 lb 12.8 oz) LMP 07/12/2021 (Exact Date) SpO2 98% BMI 20.20 kg/m Review of Systems Constitutional: Negative for chills, fever and malaise/fatigue. HENT: Positive for ear pain. Negative for congestion, ear discharge, hearing loss, sinus pain, sore throat and tinnitus. Eyes: Negative for blurred vision, pain, discharge and redness. Respiratory: Negative for cough, hemoptysis, sputum production, shortness of breath, wheezing and stridor. Cardiovascular: Negative for chest pain. Gastrointestinal: Negative for abdominal pain, diarrhea, nausea and vomiting. Musculoskeletal: Negative for myalgias. Skin: Negative for itching and rash. Neurological: Negative for dizziness and headaches. Objective Physical Exam Constitutional: General: She is not in acute distress. Appearance: She is not diaphoretic. HENT: Head: Normocephalic. Jaw: No trismus, tenderness, swelling or pain on movement. Right Ear: Hearing, ear canal and external ear normal. No mastoid tenderness. Tympanic membrane is erythematous and bulging. Left Ear: Hearing, tympanic membrane, ear canal and external ear normal. No mastoid tenderness. Mouth/Throat: Mouth: Mucous membranes are moist. Pharynx: Oropharynx is clear. No oropharyngeal exudate or posterior oropharyngeal erythema. Eyes: Conjunctiva/sclera: Conjunctivae normal. Pupils: Pupils are equal, round, and reactive to light. Cardiovascular: Rate and Rhythm: Normal rate and regular rhythm. Heart sounds: Normal heart sounds. Pulmonary: Effort: Pulmonary effort is normal. No tachypnea, accessory muscle usage or respiratory distress. Breath sounds: Normal breath sounds. No stridor. No wheezing, rhonchi or rales. Abdominal: Palpations: Abdomen is soft. Tenderness: There is no abdominal tenderness. Musculoskeletal: Cervical back: Normal range of motion and neck supple. No rigidity or tenderness. Lymphadenopathy: Cervical: No cervical adenopathy. Skin: General: Skin is warm and dry. Neurological: Mental Status: She is alert and oriented to person, place, and time. ASSESSMENT/PLAN: 1. Acute otitis media, right - ICD9: 382.9, ICD10: H66.91 Patient diagnosed with otitis media right ear. Mild bulging. TM was erythematous. We discussed the use of Motrin tonight. Will start antibiotics in morning if symptoms are not improving. Red flags for prompt reevaluation discussed. Patient was educated on supportive therapies. Patient will follow up with primary care provider as needed. Patient was instructed to immediately proceed to emergency room for any new, worsening, or symptoms lasting longer than anticipated. The patient's clinical presentation is otherwise unremarkable at this time. Based on exam and clinical finding, the patient is stable for discharge. Plan of care was discussed with patient. Patient verbalizes understanding and agrees to plan of care. This note was generated using [employer] software. It may contain errors in wording, punctuation, or spelling. Ac Du APRN.MARINA documented in this encounter [facility] Diagnosis Encounter for gynecological examination (general) (routine) without abnormal findings- Primary Screening examination for STD (sexually transmitted disease) Screening examination for venereal disease control counseling General counseling for initiation of other contraceptive measures [facility]* Diagnosis Viral illness- Primary Unspecified viral infection, in conditions classified elsewhere and of unspecified site [facility] Diagnosis Well adult exam- Primary Routine general medical examination at a health care facility Hyperthyroidism Thyrotoxicosis without mention of goiter or other cause, without mention of thyrotoxic crisis or storm CRYSTAL (generalized anxiety disorder) Generalized anxiety disorder Chronic constipation Unspecified constipation Encounter for vitamin deficiency screening Screening for other and unspecified endocrine, nutritional, metabolic, and immunity disorders Screening for lipid disorders documented in this encounter [facility]* Diagnosis CRYSTAL (generalized anxiety disorder)- Primary Generalized anxiety disorder Chronic constipation Unspecified constipation Periumbilical abdominal pain Abdominal pain, periumbilic [facility]* Diagnosis Sore throat- Primary Acute pharyngitis Acute otitis media, right Unspecified otitis media documented in this encounter [facility]* Diagnosis Screening-pulmonary TB- Primary Screening examination for pulmonary tuberculosis documented in this encounter [facility]* Diagnosis Screening-pulmonary TB- Primary Screening examination for pulmonary tuberculosis documented in this encounter [facility] note* Diagnosis Situational anxiety- Primary Other anxiety states Chest tightness Other chest pain Stress Other psychological or physical stress, not elsewhere classified [facility] Instruction Text No instruction information i s available. [facility] Reason for referral (narrative)* Outpatient Procedure (Routine) - Pending Review Specialty Diagnoses / Procedures Referred By Lucio johnson [facility] Diagnoses Situational anxiety Chest tightness Stress Procedures ECG COMPLETE ECG ROUTINE ECG W/LEAST 12 LDS W/I&R Ena Balderas APRN.CNP [address] [place] [address] [facility] [place] [address] [place] [id number] Referral ID Status Reason Start Date Expiration Date Visits Requested Visits Authorized [id number] Pending Review Auto-Generat ed Referral 3 07/16/2024 1 1 [facility] Summary Purpose Family History No Family History Records FoundNo Family History Records FoundNo Family History Records FoundNo Family History Records FoundNo Family History Records Found Advance Directives No Advanced Directives Records FoundNo Advanced Directives Records FoundNo Advanced Directives Records FoundNo Advanced Directives Records FoundNo Advanced Directives Records Found Procedure Findings Note Post Operative Note: PreOp D iagnosis: right knee medial meniscus injury Post-Procedure Diagnosis: same Procedure: R knee arthroscopy, medial menisectomy, debridement Surgeon: Stephanie Resident/Fellow/Other Manager Electronic: Bigg Anesthesia: LMA I.V. Fluids: 500 LR Estimated Blood Loss (mL): 5 cc Blood Replacement: none Specimen: no Complications: none Findings: see op note Patient Returned To/Condition: PACU, stable Operative Report Dictated: Dictation: yes Dictated by: Stephanie Date of Dictation: 31-Mar-2018 Dictation job number: [id number] Signature/Cosignature/Attestation: Attending AttestationI was present for the entire procedure Electronic Signatures: Wyatt Brown) (Signed 31-Mar-2018 13:04) Authored: Post Operative Note, Signature/Cosignature/Attestation Co- Signer: Post Operative Note, Signature/Cosignature/Attestation Ced Pride (Resident)) (Signed 31-Mar-2018 09:29) Authored: Post Operative Note, Signature/Cosignature/Attestation Last Updated: 31-Mar-2018 1 (more content not included)... Health Concerns Infection Onset Date Last Indicated Resolved Time COVID-19 Rule-Out 09/09/2022 09/09/2022 Additional Source Comments INFORMATION SOURCE (unrecogn ized section and content) DATE CREATED AUTHOR AUTHOR'S ORGANIZ ATION 10/05/2018 [facility] DATE CREATED AUTHOR AUTHOR'S ORGANIZ ATION 11/07/2019 [facility] DATE CREATED AUTHOR AUTHOR'S ORGANIZ ATION 03/20/2023 [facility] DATE CREATED AUTHOR AUTHOR'S ORGANIZ ATION 07/24/2023 [facility] Source Comments (unrecognize d section and content) In the event this informatio n is protected by the Federal Confidentiality of Alcohol and Drug Abuse Patient Records regulations: The Federal rules restrict any use of the information to criminally investigate or prosecute any alcohol or drug abuse patient.[facility] the event this information is protected by the Federal Confidentiality of Alcohol and Drug Abuse Patient Records regulations: The Federal rules restrict any use of the information to criminally investigate or prosecute any alcohol or drug abuse patient.[facility] the event this information is protected by the Federal Confidentiality of Alcohol and Drug Abuse Patient Records regulations: The Federal rules restrict any use of the information to criminally investigate or prosecute any alcohol or drug abuse patient.[facility] the event this information is protected by the Federal Confidentiality of Alcohol and Drug Abuse Patient Records regulations: The Federal rules restrict any use of the information to criminally investigate or prosecute any alcohol or drug abuse patient.[facility] the event this information is protected by the Federal Confidentiality of Alcohol and Drug Abuse Patient Records regulations: The Federal rules restrict any use of the information to criminally investigate or prosecute any alcohol or drug abuse patient.[facility] the event this information is protected by the Federal Confidentiality of Alcohol and Drug Abuse Patient Records regulations: The Federal rules restrict any use of the information to criminally investigate or prosecute any alcohol or drug abuse patient.[facility] the event this information is protected by the Federal Confidentiality of Alcohol and Drug Abuse Patient Records regulations: The Federal rules restrict any use of the information to criminally investigate or prosecute any alcohol or drug abuse patient.[facility] Company[facility] the event this information is protected by the Federal Confidentiality of Alcohol and Drug Abuse Patient Records regulations: The Federal rules restrict any use of the information to criminally investigate or prosecute any alcohol or drug abuse patient.[facility] the event this information is protected by the Federal Confidentiality of Alcohol and Drug Abuse Patient Records regulations: The Federal rules restrict any use of the information to criminally investigate or prosecute any alcohol or drug abuse patient.[facility] Company[facility] the event this information is protected by the Federal Confidentiality of Alcohol and Drug Abuse Patient Records regulations: The Federal rules restrict any use of the information to criminally investigate or prosecute any alcohol or drug abuse patient.[facility] Company[facility] the event this information is protected by the Federal Confidentiality of Alcohol and Drug Abuse Patient Records regulations: The Federal rules restrict any use of the information to criminally investigate or prosecute any alcohol or drug abuse patient.[facility] Company[facility] the event this information is protected by the Federal Confidentiality of Alcohol and Drug Abuse Patient Records regulations: The Federal rules restrict any use of the information to criminally investigate or prosecute any alcohol or drug abuse patient.[facility] Company[facility] the event this information is protected by the Federal Confidentiality of Alcohol and Drug Abuse Patient Records regulations: The Federal rules restrict any use of the information to criminally investigate or prosecute any alcohol or drug abuse patient.[facility] the event this information is protected by the Federal Confidentiality of Alcohol and Drug Abuse Patient Records regulations: The Federal rules restrict any use of the information to criminally investigate or prosecute any alcohol or drug abuse patient.[facility] the event this information is protected by the Federal Confidentiality of Alcohol and Drug Abuse Patient Records regulations: The Federal rules restrict any use of the information to criminally investigate or prosecute any alcohol or drug abuse patient.[facility] the event this information is protected by the Federal Confidentiality of Alcohol and Drug Abuse Patient Records regulations: The Federal rules restrict any use of the information to criminally investigate or prosecute any alcohol or drug abuse patient.[facility] the event this information is protected by the Federal Confidentiality of Alcohol and Drug Abuse Patient Records regulations: The Federal rules restrict any use of the information to criminally investigate or prosecute any alcohol or drug abuse patient.[facility] Reason for Visit (unrecogniz ed section and content) Reason Comments Nasal Congestion drainage, cough, sin us pressure and bodyaches x 3 days Reason Comments Establish Care Constipation Reason Comments Request Outside Medical Records Reason Comments Medication Follow-up Reason Onset Date Comments Refill Request 01/14/2023 Reason Comments Cough sore throat and fati citlalli x 4 days, right ear pain x today Reason Onset Date Comments Refill Request 03/16/2023 Reason Comments Abstract Reason Onset Date Comments Refill Request 04/16/2023 Reason Comments Orders Reason Comments Question Reason Onset Date Comments Refill Request 06/22/2023 Reason Comments Chest Pain Intermittently x cou ple months, unsure if anxiety related. Pt dx with hypothyroidism. Care Teams (unrecognized sec tion and content) Dye Range Operator Relationship Specialty Start Date End Date Luly Lambert MD [address] [place] [address] PCP - General 06/21/02 Dye Range Operator Relationship Specialty Start Date End Date Ena Balderas APRN.SPECIMEN PREPARATION ASSISTANT [address], [place] [id number] PCP - General Family Medicine 09/12/22 Dye Range Operator Relationship Specialty Start Date End Date Ena Balderas APRN.SPECIMEN PREPARATION ASSISTANT [address], [place] [id number] PCP - General Family Medicine 09/12/22 Dye Range Operator Relationship Specialty Start Date End Date Ena Balderas APRN.SPECIMEN PREPARATION ASSISTANT [address] [place] [address] PCP - General Family Medicine 09/12/22 Dye Range Operator Relationship Specialty Start Date End Date Ena Balderas, CLOTH FINISHING RANGE TENDER.SPECIMEN PREPARATION ASSISTANT [address] [place] [address] PCP - General Family Medicine 09/12/22 Dye Range Operator Relationship Specialty Start Date End Date AndreyEna, CLOTH FINISHING RANGE TENDER.SPECIMEN PREPARATION ASSISTANT [address] [place] [address] PCP - General Family Medicine 09/12/22 Dye Range Operator Relationship Specialty Start Date End Date Ena Balderas, CLOTH FINISHING RANGE TENDER.SPECIMEN PREPARATION ASSISTANT [address] [place] [address] PCP - General Family Medicine 09/12/22 Dye Range Operator Relationship Specialty Start Date End Date AndreyEna, CLOTH FINISHING RANGE TENDER.SPECIMEN PREPARATION ASSISTANT [address] [place] [address] PCP - General Family Medicine 09/12/22 Dye Range Operator Relationship Specialty Start Date End Date Ena Balderas, CLOTH FINISHING RANGE TENDER.SPECIMEN PREPARATION ASSISTANT [address] [place] [address] PCP - General Family Medicine 09/12/22 Dye Range Operator Relationship Specialty Start Date End Date AndreyEna, CLOTH FINISHING RANGE TENDER.SPECIMEN PREPARATION ASSISTANT [address] [place] [address] PCP - General Family Medicine 09/12/22 Dye Range Operator Relationship Specialty Start Date End Date Ena Balderas, CLOTH FINISHING RANGE TENDER.SPECIMEN PREPARATION ASSISTANT [address] [place] [address] PCP - General Family Medicine 09/12/22 Dye Range Operator Relationship Specialty Start Date End Date Ena Balderas, CLOTH FINISHING RANGE TENDER.SPECIMEN PREPARATION ASSISTANT [address] [place] [address] PCP - General Family Medicine 09/12/22 Dye Range Operator Relationship Specialty Start Date End Date Ena Balderas APRN.SPECIMEN PREPARATION ASSISTANT [address] [place] [address] PCP - General Family Medicine 09/12/22 FOR RECORDS PERTAINING TO PATIENTS WHO ARE OR HAVE BEEN ENROLLED IN A CHEMICAL DEPENDENCY/SUBSTANCEABUSE PROGRAM, SOME INFORMATION MAY BE OMITTED. This clinical summary was aggregated from multiple sources. Caution should be exercised in using it in the provision of clinical care. This summary normalizes information from multiple sources, and as a consequence, information in this document may materially change the coding, format and clinical context of patient data. In addition, data may be omitted in some cases. CLINICAL DECISIONS SHOULD BE BASED ON THE PRIMARY CLINICAL RECORDS. [employer] provides no warranty or guarantee of the accuracy or completeness of information in this document.
[2023-08-28 13:17] LABS: T4 Free Direct 0.89 ng/dL (0.76-1.46); Thyroid Stim Hormone (TSH) 1.52 uIU/mL (0.358-3.74)
== END | disposition home or self-care (01) ==
LOC: BIMLAB 09:02
PROVIDERS: Referring Provider Internal Medicine Endocrinology, Diabetes & Metabolism; Visit Provider Internal Medicine Endocrinology, Diabetes & Metabolism
DX: E03.8 Other specified hypothyroidism (principal); E06.3 Autoimmune thyroiditis
CPT/HCPCS: 36415; 84439; 84443